=== PATIENT | male | born 1970 | race Caucasian/White ===

== ENCOUNTER → 2019-11-09 08:57 | Outpatient (BNVA) | payer BC, OTHER, SELFPAY | PROVIDERS: PCP Nurse Practitioner; Visit Provider Nurse Practitioner | DX: J02.9 Acute pharyngitis, unspecified (principal); I10 Essential (primary) hypertension | CPT/HCPCS: 87081; 87880 ==

== ENCOUNTER 2021-04-22 11:40 | Emergency (ER) | payer OTHER, SELFPAY ==
[2021-04-22] VITALS (9 sets, daily range): BP systolic 113–145; BP diastolic 67–81; PULSE 80–97; RESP 17–20; TEMP 37.6–39.1; O2SAT 92–97; BMI 33.2
--- NOTE | 2021-04-22 13:08 | XRR_ITS ---
PROCEDURE INFORMATION: Exam: XR Chest Exam date and time: 04/22/2021 1:08 PM Age: 50 years old Clinical indication: Shortness of breath; Additional info: SOB covid TECHNIQUE: Imaging protocol: XR of the chest. Views: 1 view. COMPARISON: No relevant prior studies available. FINDINGS: Lungs: Patulous infiltrate seen within both lungs, more pronounced on the left. Pleural spaces: Unremarkable. No pleural effusion. No pneumothorax. Heart/Mediastinum: Unremarkable. No cardiomegaly. Bones/joints: Unremarkable. XR/XR chest 1V portable [id number] IMPRESSION: Patulous infiltrates within the lungs. Please see corresponding CTA chest report which describes in further detail findings of suspected COVID-19 pneumonia.
--- NOTE | 2021-04-22 13:08 | W.ED.COVID ---
HPI - COVID General: Chief Complaint: COVID symptoms Stated Complaint: COVID+ SOB Time Seen by Provider: 04/22/21 11:45 Triage information: No fever, cough or shortness of breath. Exposure to COVID + person last 14 days History of Present Illness: HPI Narrative: Pt presents to ER c/o cough congestion and SOB and states exposure to Covid 14 days ago. Pt denies fever, or chest pain, Pt states he just feels tired. COVID 19 common symptoms: negative fever(s), chills, productive cough, dyspnea, headache(s), throat pain, nasal congestion, nausea, vomiting or diarrhea COVID 19 other sytmptoms: negative chest pain or confusion COVID Results: No Data to Display Review of Systems Const: Denies: fever(s), chills, change in appetite, change in weight, malaise or diaphoresis Eyes: Denies: change in vision, blurry vision, blind spots, photophobia, eye discomfort, eye discharge, eye redness, floaters or seeing flashes ENMT: Denies: throat pain, uvular edema, enlarged tonsils, odynophagia, hoarseness, mouth pain, swelling of lips/tongue, oral sores, bleeding gums, dental pain, dry mouth, ear or mastoid pain, ear discharge, change in hearing, tinnitus, disequilibrium, nasal discharge, nasal congestion, post nasal drip or sinus pain Card: Denies: chest pain, palpitations, irregular heart rhythm, edema, swelling of feet/ankles, lightheadedness, syncope, pre-syncope, dyspnea on exertion, orthopnea, leg pain with exertion or acrocyanosis Resp: Denies: dyspnea, productive cough, wheezing, stridor, pain on inspiration, change in phlegm color, hemoptysis or chest congestion GI: Denies: abdominal pain, nausea, vomiting, hematemesis, dysphagia, diarrhea, constipation, GI cramping, change in bowel habits or rectal pain : Denies: flank pain, dysuria, urinary frequency, urinary urgency, urinary hesitancy or hematuria Musc: Denies: neck pain, back pain, extremity pain, extremity swelling, joint pain, joint swelling, joint redness, joint warmth or deformity Skin/Breast: Denies: rash, pruritus, erythema, sores, new lesions, changes in skin color or dry skin Neuro: Denies: headache(s), numbness in extremities, weakness in extremities, sensory changes, lack of coordination, difficulty walking, frequent falls, dizziness, vertigo, confusion, behavioral changes, Slurred speech present, difficulty communicating thoughts or seizure-like activity Psych: Denies: anxiety, depression, suicidal ideation or homicidal ideation Endo: Denies: polyuria, polydipsia, tired all the time, cold intolerance, excessive sweating, flushing, hot flashes or heat intolerance Jerome/Lymph: Denies: easy bruising, easy bleeding, petechiae, purpura, enlarged lymph nodes or tender lymph nodes All/Imm: Denies: urticaria, throat swelling, tongue swelling, facial swelling, acute wheezing or itchy eyes PFSH ED PFSH: Medical History Acute and chronic respiratory failure with hypoxia Essential (primary) hypertension Pneumonia due to COVID-19 virus Pulmonary emboli Surgical History History of arthroscopic knee surgery left knee - dr andersen Hx of tonsillectomy Family History Family/Other Seizure disorder Uncle Other Hypertension Social History Quit status (tobacco): has quit using tobacco Year quit tobacco: 1990 Former quit date comment: Hx of 1PPD x 6 Years - Quit Chewing Tobacco 2020 - Hox of 30 Years Second hand smoke exposure: No Smoking risk assessment/counseling performed?: No Alcohol intake: former Counseling given: No Counseling given: No Lives independently: Yes Household members: spouse Marital status: Current occupational status: employed Current occupation: [employer] History of recent travel: No Current gender identity: Male Physical Exam Const: COMMON NORMALS: no acute distress, patient oriented x3, healthy appearing, alert and well nourished GENERAL APPEARANCE: cooperative, comfortable, well kempt and well developed; not ill appearing ORIENTATION/CONSCIOUSNESS: Yes awake, Yes oriented to person, Yes oriented to place and Yes oriented to time HENMT: COMMON NORMALS: normocephalic, atraumatic, hearing grossly normal bilaterally, external ears normal, EAC's normal, TM's normal bilaterally, Normal external nose present, Normal nasal mucous membranes and turbinates present and moist oral mucous membranes HEAD & SCALP: normal to inspection, normocephalic and atraumatic FACE & SINUS: normal facial exam, sinuses nontender and face symmetric NOSE: Normal external nose present, Normal nares present, Normal nasal mucous membranes and turbinates present, No nasal discharge present and Abnormal external nose present EXTERNAL EAR: Yes external ears normal and Yes mastoids normal EXTERNAL AUDITORY CANAL: EAC's normal TYMPANIC MEMBRANE: TM's normal bilaterally MOUTH: Normal oral and palatal mucosa present, lip normal, tongue normal and Normal salivary glands and ducts present THROAT: no uvular edema Eye: COMMON NORMALS: Equal, round and reactive pupils present, EOMs intact bilaterally, conjunctivae normal, no scleral icterus and no papilledema GENERAL EYE: appearance normal, both eyes and all related structures EYELID: eyelids normal CONJUNCTIVA: Yes conjunctivae normal SCLERA: sclerae normal CORNEA: Yes corneas normal PUPIL: Yes Equal, round and reactive pupils present DIRECT OPHTHALMOSCOPY: Yes no papilledema Neck/C-Spine: COMMON NORMALS: full ROM, no lymphadenopathy, supple, no meningeal signs, no JVD and Thyroid normal GENERAL: Yes normal visual inspection and Yes trachea midline THYROID: Thyroid normal CERVICAL SPINE: Yes cervical ROM normal Lymph: LYMPHATIC: no lymphadenopathy noted and no lymphedema noted Chest: COMMONS NORMALS: normal inspection of the chest and normal palpation of entire chest wall Resp: COMMON NORMALS: normal respiratory effort, No retractions, No use of accessory muscles and clear to auscultation bilaterally EFFORT & INSPECTION: Yes able to speak in complete sentences and Yes symmetric chest movement AUSCULTATION: clear to auscultation bilaterally Cardio: COMMON NORMALS: no JVD, regular rate and regular rhythm RATE: regular rate RHYTHM: regular rhythm GI: COMMON NORMALS: Normal to inspection, nondistended, normoactive bowel sounds present, Soft to palpation, non-tender, No hepatosplenomegaly present, no masses and no bruits INSPECTION: Yes normal to inspection AUSCULTATION: Yes normoactive bowel sounds PALPATION: Yes Soft to palpation and Yes No hepatosplenomegaly present PERCUSSION: normal to percussion RECTAL EXAM: Yes deferred : COMMON NORMALS: Yes no CVA tenderness BLADDER/KIDNEY EXAM: Yes no CVA tenderness Back/Pelvis: COMMON NORMALS: no CVA tenderness, thoracic and lumbar spine normal to inspection, no thoracic nor lumbar tenderness, thoraco-lumbar ROM normal and straight leg raise negative bilaterally THORACIC SPINE/UPPER BACK: Yes normal to inspection LUMBAR SPINE/LOWER BACK: Yes normal to inspection Extremity: COMMON NORMALS: normal to inspection, full ROM and capillary refill normal GENERAL: Yes normal exam except as noted Neuro: COMMON NORMALS: patient oriented x3, CN's II-XII intact bilaterally, moves all extremities, no focal motor deficits, no sensory deficits noted, deep tendon reflexes 2+ bilaterally and gait normal SENSORIUM/ORIENTATION: Yes alert, Yes oriented to person, Yes oriented to place and Yes oriented to time MENINGEAL SIGNS: Yes no meningeal signs CRANIAL NERVES: Yes CN normal except as noted SPEECH: speech normal GAIT: Yes Normal gait present SENSORY EXAM: Yes extremities MOTOR EXAM: 5/5 motor strength present throughout Psych: COMMON NORMALS: mental status grossly normal, Normal thought process present, cooperative, normal affect, speech normal, activity/motor behavior normal, denies hallucinations, denies homicidal ideation and denies suicidal ideation APPEARANCE: Yes grossly normal and Yes well kempt ATTITUDE: Yes calm ACTIVITY/MOTOR BEHAVIOR: Yes appropriate eye contact SPEECH: Yes normal speech THOUGHT PROCESS: Normal thought process present THOUGHT CONTENT: Yes Normal thought content present ATTENTION/CONCENTRATION: Yes attention grossly intact MEMORY/COGNITION: Yes memory grossly intact INSIGHT: Good insight present (Psych) JUDGEMENT: Good judgement present (Psych) Skin: COMMON NORMALS: no rashes or lesions noted, no wounds, turgor normal, no jaundice, no petechiae and no mottling GENERAL SKIN EXAM: no rashes or lesions noted and turgor normal Course Vital Signs: Vital signs: Vital Signs Temperature 100.2 F H 04/22/21 18:16 Pulse Rate 85 04/22/21 18:16 Respiratory Rate 20 H 04/22/21 18:16 Blood Pressure 145/81 04/22/21 18:16 Pulse Oximetry 95 04/22/21 18:16 MDM - COVID MDM Narrative Medical decision making narrative: Pt is well appearin gnon toxic and in no acute distress. Pt is febrile while here in the ER and treated with Tylenol. Pt denies chest pain and is not tachy but given his increasing sob I will order d dimer. Dimer is elevated. CT chest [address] [id number] [address] Scan Report Signed Patient: Bennie Avalos Unit #: [id number] : 1970 Age/Sex: 50 / M ADM Date: 04/22/21 Loc: ER Room/Bed: Attending Dr: Ordering Provider/Ordering MD: Sheridan Scott NP Date of Service: 04/22/21 Procedure(s): CT angio chest PE protcl [id number] Accession Number(s): [id number] Report Number: [id number] PROCEDURE INFORMATION: Exam: CTA Chest With Contrast Exam date and time: 04/22/2021 1:31 PM Age: 50 years old Clinical indication: Shortness of breath; Additional info: SOB TECHNIQUE: Imaging protocol: Computed tomographic angiography of the chest with contrast. 3D rendering (Not supervised by radiologist): MIP and/or 3D reconstructed images were created by the technologist. Radiation optimization: All CT scans at this facility use at least one of these dose optimization techniques: automated exposure control; mA and/or kV adjustment per patient size (includes targeted exams where dose is matched to clinical indication); or iterative reconstruction. Contrast material: OMNIPAQUE 350; Contrast volume: 81 ml; Contrast route: INTRAVENOUS (IV);? COMPARISON: CR (CHEST, ) 04/22/2021 1:18 PM RADIATION DOSE METRICS: Total DLP (mGy-cm): 600.95 FINDINGS: Pulmonary arteries: Normal. No pulmonary emboli. Aorta: Unremarkable. No aortic aneurysm. No aortic dissection. Lungs: Peripheral ground-glass opacities throughout both lungs. Pleural spaces: Unremarkable. No pneumothorax. No pleural effusion. Heart: Unremarkable. No cardiomegaly. No pericardial effusion. Lymph nodes: Several mildly prominent mediastinal lymph nodes are noted, likely reactive. Partially calcified left hilar and mediastinal lymph nodes suggestive of prior granulomatous disease. Spleen: Punctate calcifications noted throughout the spleen suggestive of prior granulomatous disease. Bones/joints: Unremarkable. No acute fracture. Soft tissues: Unremarkable. CT/CT angio chest PE protcl [id number] IMPRESSION: 1. Negative for pulmonary embolism. 2. Peripheral ground-glass opacities throughout both lungs suspicious for atypical infection, in particular COVID-19 pneumonia. Pt has no evidence of hypoxemia and is 95% on RA but does drop down to upper 80s with activity. Pt does meet qualifications for Home o2 and will plan to dc with O2. there is no tachypenia noted. Pt mildly hyponatremic 1 liter ns given Will send patient home with Pulse ox and have covid follow up Strict return precautions advsed Lab Data Result diagrams: 04/22/21 12:41 04/22/21 12:41 Labs: Lab Results 04/22/21 04/22/21 04/22/21 12:41 12:41 12:41 WBC 5.9 10^3/uL 10^3/uL (4.0-10.0) RBC 4.70 10^6/uL 10^6/uL (4.1-5.3) Hgb 13.0 g/dL g/dL (11.7-16.6) Hct 39.0 % L % (42.0-52.0) MCV 83.0 fL fL (80-94) MCH 27.7 pg L pg (28.0-34.0) MCHC 33.3 g/dL g/dL (30.0-36.0) RDW 13.7 % % (12.1-15.1) Plt Count 154 10^3/cmm 10^3/cmm (130-400) MPV 9.5 fL fL (7.4-10.4) Neut % (Auto) 85.4 % % Lymph % (Auto) 10.8 % % [place] % (Auto) 2.4 % % Eos % (Auto) 0.2 % % Baso % (Auto) 0.2 % % Neut # (Auto) 5.06 10^3/uL 10^3/uL (1.8-7.7) Lymph # (Auto) 0.6 10^3/uL L 10^3/uL (0.8-4.8) [place] # (Auto) 0.1 10^3/uL L 10^3/uL (0.2-0.9) Eos # (Auto) 0.0 10^3/uL 10^3/uL (0.0-0.8) Baso # (Auto) 0.0 10^3/uL 10^3/uL (0.0-0.1) Nucleated RBC % (auto) 0 % % Nucleated RBCs # 0.0 /100WBC /100WBC D-Dimer 1.13 ug/mIFEU H ug/mIFEU (0-0.59) Sodium 132 mmol/L L mmol/L (136-145) Potassium 3.5 mmol/L mmol/L (3.5-5.1) Chloride 98 mmol/L mmol/L (98-107) Carbon Dioxide 23 mmol/L mmol/L (22-29) Anion Gap 14.5 (5-19) BUN 9 mg/dL mg/dL (6-20) Creatinine 0.8 mg/dL mg/dL (0.7-1.2) GFR Calculation 102.7 mL/min mL/min (90-130) Glucose 127 mg/dL H mg/dL (65-115) Calculated Osmolality 274 mOsm/kg L mOsm/kg (285-295) Lactate Calcium 7.7 mg/dL L mg/dL (8.5-10.5) Total Bilirubin 0.5 mg/dL mg/dL (0.15-1.2) AST 55 U/L H U/L (0-40) ALT 49 U/L H U/L (0-41) Alkaline Phosphatase 74 IU/L IU/L (40-130) Total Protein 5.8 g/dL L g/dL (6.6-8.7) Albumin 3.2 g/dL L g/dL (3.5-5.2) Globulin 2.6 g/dL g/dL (1.3-4.6) 04/22/21 12:41 WBC RBC Hgb Hct MCV MCH MCHC RDW Plt Count MPV Neut % (Auto) Lymph % (Auto) [place] % (Auto) Eos % (Auto) Baso % (Auto) Neut # (Auto) Lymph # (Auto) [place] # (Auto) Eos # (Auto) Baso # (Auto) Nucleated RBC % (auto) Nucleated RBCs # D-Dimer Sodium Potassium Chloride Carbon Dioxide Anion Gap BUN Creatinine GFR Calculation Glucose Calculated Osmolality Lactate 1.6 mmol/L mmol/L (0.5-2.2) Calcium Total Bilirubin AST ALT Alkaline Phosphatase Total Protein Albumin Globulin COVID Results: No Data to Display Discharge Plan Discharge Patient Disposition: Home Clinical Impression: COVID-19 Condition: Stable Prescriptions: No Action loratadine 10 mg tablet 10 mg PO DAILY 0RF lisinopril 10 mg tablet 10 mg PO QAM Qty: 90 0RF Eliquis 5 mg tablet 5 mg PO BID 10 Days Qty: 20 0RF Tylenol Extra Strength 500 mg Tablet 1,000 mg PO PRN 0RF fluticasone propionate 50 mcg/actuation [place],Suspension 2 spray INTRANASAL DAILY 0RF Discharge Orders: Discharge ED (Routine); Ordered 04/22/21 Ordered By: Sheridan Scott Other Ambulatory Orders: DME: Oxygen (Order) Timeframe: 1 Month Facility: [facility] - Location: Emergency Room Ordered By: Sheridan Scott Referrals: Prince Cuevas, [facility] [Primary Care Provider] - Discharge Diet: Advance as tolerated Discharge Activity: Increase activity as tolerated Patient Instructions: Opioid Safety Activity Restrictions/Additional Instructions: Please follow up with PCP for recheck Please take meds as directed Please use Oxygen as needed Please check pulse ox frequently Please return to ER with worsening Shortness of breath, chest pain or any other concerning symptoms Coding Level of Care Code ED [employer] [facility] Att[facility] for Levi Reynolds Exam Comprehensive
[2021-04-22 13:22] LABS: Basophils % 0.2 %; Eosinophils % 0.2 %; Lymphocytes # 0.6 10^3/uL (0.8-4.8); Lymphocytes % 10.8 %; Mean Corpuscular HGB Conc 33.3 g/dL (30.0-36.0); Mean Corpuscular Hemoglobin 27.7 pg (28.0-34.0); Mean Platelet Volume 9.5 fL (7.4-10.4); Monocytes # 0.1 10^3/uL (0.2-0.9); Monocytes % 2.4 %; Neutrophils # 5.06 10^3/uL (1.8-7.7); Neutrophils % 85.4 %; Nucleated Red Blood Cells % 0 %; Platelet Count 154 10^3/cmm (130-400); Red Cell Distribution Width 13.7 % (12.1-15.1); White Blood Count 5.9 10^3/uL (4.0-10.0)
[2021-04-22 13:31] LABS: D Dimer 1.13 ug/mIFEU (0-0.59)
--- NOTE | 2021-04-22 13:31 | CTR_ITS ---
PROCEDURE INFORMATION: Exam: CTA Chest With Contrast Exam date and time: 04/22/2021 1:31 PM Age: 50 years old Clinical indication: Shortness of breath; Additional info: SOB TECHNIQUE: Imaging protocol: Computed tomographic angiography of the chest with contrast. 3D rendering (Not supervised by radiologist): MIP and/or 3D reconstructed images were created by the technologist. Radiation optimization: All CT scans at this facility use at least one of these dose optimization techniques: automated exposure control; mA and/or kV adjustment per patient size (includes targeted exams where dose is matched to clinical indication); or iterative reconstruction. Contrast material: OMNIPAQUE 350; Contrast volume: 81 ml; Contrast route: INTRAVENOUS (IV); COMPARISON: CR (CHEST, ) 04/22/2021 1:18 PM RADIATION DOSE METRICS: Total DLP (mGy-cm): 600.95 FINDINGS: Pulmonary arteries: Normal. No pulmonary emboli. Aorta: Unremarkable. No aortic aneurysm. No aortic dissection. Lungs: Peripheral ground-glass opacities throughout both lungs. Pleural spaces: Unremarkable. No pneumothorax. No pleural effusion. Heart: Unremarkable. No cardiomegaly. No pericardial effusion. Lymph nodes: Several mildly prominent mediastinal lymph nodes are noted, likely reactive. Partially calcified left hilar and mediastinal lymph nodes suggestive of prior granulomatous disease. Spleen: Punctate calcifications noted throughout the spleen suggestive of prior granulomatous disease. Bones/joints: Unremarkable. No acute fracture. Soft tissues: Unremarkable. CT/CT angio chest PE protcl [id number] IMPRESSION: 1. Negative for pulmonary embolism. 2. Peripheral ground-glass opacities throughout both lungs suspicious for atypical infection, in particular COVID-19 pneumonia. Radiation Dose CTDIVOL = (mGy): DLP = 600.95 (mGy-cm)
[2021-04-22] MEDS: sodium chloride 0.9% 1,000 ML 999 ML IV (13:46)
[2021-04-22 13:48] LABS: Lactate (Lactic Acid level) 1.6 mmol/L (0.5-2.2)
[2021-04-22 13:51] LABS: Alanine Aminotransferase 49 U/L (0-41); Albumin Level 3.2 g/dL (3.5-5.2); Alkaline Phosphatase 74 IU/L (40-130); Anion Gap 14.5 (5-19); Aspartate Amino Transferase 55 U/L (0-40); Blood Urea Nitrogen 9 mg/dL (6-20); Calcium 7.7 mg/dL (8.5-10.5); Carbon Dioxide 23 mmol/L (22-29); Chloride 98 mmol/L (98-107); Creatinine Clr Calc Pharmacy 143.7863; Globulin 2.6 g/dL (1.3-4.6); Glomerular Filtration Rate 102.7 mL/min (90-130); Glucose 127 mg/dL (65-115); Osmolality Calculated 274 mOsm/kg (285-295); Potassium 3.5 mmol/L (3.5-5.1); Sodium 132 mmol/L (136-145); Total Bilirubin 0.5 mg/dL (0.15-1.2); Total Protein 5.8 g/dL (6.6-8.7)
[2021-04-22 13:55] LABS: Slide Review Slide Review Perform
[2021-04-22] MEDS: iohexol 350 mg/mL 100 mL Btl IV (14:13)
[2021-04-22] MEDS: acetaminophen 500 mg Tablet 1000 MG PO (17:32)
--- NOTE | 2021-04-22 17:32 | PC.NURSE ---
oxygen company has delivered O2 and patient was about to discharge. discharge vitals 102.3 temp, chills. requests snack to settle stomach and tylenol for fever. MD notified. Tylenol given, patient eating now and will discharge shortly
== END 2021-04-22 18:10 | disposition home or self-care (01) ==
PROVIDERS: Emergency Provider Registered Nurse; PCP Nurse Practitioner
DX: U07.1 COVID-19 (principal); Z79.01 Long term (current) use of anticoagulants; I10 Essential (primary) hypertension; Z87.891 Personal history of nicotine dependence; Z86.711 Personal history of pulmonary embolism
CPT/HCPCS: 36415; 71045; 71275; 80053; 83605; 85025; 85378; 87040; 96360; 99284; J7030; Q9967

== ENCOUNTER 2021-04-25 13:26 | Emergency (ER) | payer OTHER, SELFPAY ==
--- NOTE | 2021-04-25 14:05 | XR_ITS ---
WS: [id number] Portable AP upright chest, 04/25/2021 Clinical Data: dyspnea/cough Comparison: Portable chest, 04/22/2021. Findings: Bilateral patchy pulmonary opacities have not changed. The heart is normal. No nodules, mas ses or effusions are seen. XR/XR chest 1V portable [id number] Impression: No change in bilateral patchy pulmonary opacities consistent with pneumonia.
[2021-04-25 14:16] VITALS: BP 158/92; PULSE 83; RESP 18; TEMP 36.5; O2SAT 94; BMI 33.2
--- NOTE | 2021-04-25 16:51 | ED_ITS ---
HPI - COVID General: Chief Complaint: COVID symptoms Stated Complaint: COVID (+), O2 BELOW 90% Time Seen by Provider: 04/25/21 16:45 Triage information: Has fever, cough or shortness of breath . Exposure to COVID + person last 14 days History of Present Illness: HPI Narrative: 50-year-old male who tested positive for Covid 7 days ago. He is not meet qualifications for monoclonal antibody he returned 4 days ago and was started on oxygen his oxygen saturations he felt of been decreasing. He had a finger sat monitor and said it was dropping into the 80s on arrival here he is consistently in the mid 90s on 2 L by nasal cannula. complaint: known COVID positive Prior covid testing: yes, results known Prior testing date: 04/18/21 COVID 19 common symptoms: positive fever(s), chills, cough, non-productive cough, dyspnea, fatigue, body aches, headache(s), loss of sense of smell and/or taste, throat pain, nasal congestion, nausea and diarrhea COVID 19 other sytmptoms: positive requiring oxygen; negative chest pain Onset (ago): day(s) Severity: moderate Pertinent comorbid conditions: hypertension Treatment prior to arrival: steroids and oxygen COVID Results: No Data to Display Review of Systems Const: Reports: fever(s), chills, body aches and fatigue ENMT: Reports: throat pain and nasal congestion Card: Denies: chest pain, edema, dyspnea on exertion or orthopnea Resp: Reports: dyspnea and non-productive cough GI: Reports: nausea and diarrhea : Denies: flank pain, dysuria, urinary frequency or urinary urgency Skin/Breast: Denies: rash or pruritus Neuro: Reports: headache(s) PFSH ED PFSH: Medical History Essential (primary) hypertension Surgical History History of arthroscopic knee surgery left knee - dr andersen Hx of tonsillectomy Family History Family/Other Seizure disorder Uncle Other Hypertension Social History Smoking and tobacco status: former smoker Second hand smoke exposure: No Alcohol intake: former Household members: spouse Marital status: Current occupational status: employed Current occupation: [employer] History of recent travel: No Current gender identity: Male Physical Exam Const: COMMON NORMALS: no acute distress GENERAL APPEARANCE: cooperative and comfortable ORIENTATION/CONSCIOUSNESS: Yes awake, Yes oriented to person, Yes oriented to place and Yes oriented to time HENMT: COMMON NORMALS: normocephalic, atraumatic and hearing grossly normal bilaterally HEAD & SCALP: normocephalic and atraumatic Neck/C-Spine: COMMON NORMALS: no JVD Resp: COMMON NORMALS: normal respiratory effort, No retractions, No use of accessory muscles and clear to auscultation bilaterally AUSCULTATION: clear to auscultation bilaterally Cardio: COMMON NORMALS: no JVD, regular rate, regular rhythm and No murmurs present (Cardio) RATE: regular rate RHYTHM: regular rhythm GI: COMMON NORMALS: Soft to palpation and No hepatosplenomegaly present AUSCULTATION: Yes normoactive bowel sounds PALPATION: Yes Soft to palpation, No Tenderness to palpation present (GI), No Guarding due to palpation present (GI) and Yes No hepatosplenomegaly present Extremity: COMMON NORMALS: normal to inspection, capillary refill normal, no clubbing, cyanosis or edema, no calf tenderness and no pedal edema Neuro: SENSORIUM/ORIENTATION: Yes oriented to person, Yes oriented to place and Yes oriented to time Skin: COMMON NORMALS: no rashes or lesions noted GENERAL SKIN EXAM: no rashes or lesions noted Course Vital Signs: Vital signs: Vital Signs Temperature 98.3 F 04/25/21 18:17 Pulse Rate 73 04/25/21 18:17 Respiratory Rate 18 04/25/21 18:17 Blood Pressure 159/102 04/25/21 18:17 Pulse Oximetry 94 04/25/21 18:17 MDM - COVID MDM Narrative: Medical decision making narrative: Reviewed findings with the patient. Discharge home return as needed. Continue previously prescribed medications and oxygen. His sats are good on current oxygen supplementation. Lab Data: Labs: Lab Results 04/25/21 04/25/21 Range/Units 17:36 17:36 WBC 10.2 H (4.0-10.0) 10^3/ uL RBC 5.09 (4.1-5.3) 10^6/u L Hgb 14.1 (11.7-16.6) g/dL Hct 42.9 (42.0-52.0) % MCV 84.3 (80-94) fL MCH 27.7 L (28.0-34.0) pg MCHC 32.9 (30.0-36.0) g/dL RDW 13.6 (12.1-15.1) % Plt Count 275 (130-400) 10^3/c mm MPV 8.7 (7.4-10.4) fL Neut % (Auto) 80.6 % Lymph % (Auto) 8.2 % [place] % (Auto) 6.2 % Eos % (Auto) 0.0 % Baso % (Auto) 0.1 % Neut # (Auto) 8.21 H (1.8-7.7) 10^3/u L Lymph # (Auto) 0.8 (0.8-4.8) 10^3/u L [place] # (Auto) 0.6 (0.2-0.9) 10^3/u L Eos # (Auto) 0.0 (0.0-0.8) 10^3/u L Baso # (Auto) 0.0 (0.0-0.1) 10^3/u L Nucleated RBC % (a uto) 0 % Nucleated RBCs # 0.0 /100WBC Sodium 139 (136-145) mmol/L Potassium 4.3 (3.5-5.1) mmol/L Chloride 102 (98-107) mmol/L Carbon Dioxide 26 (22-29) mmol/L Anion Gap 15.3 (5-19) BUN 14 (6-20) mg/dL Creatinine 0.7 (0.7-1.2) mg/dL GFR Calculation 119.9 (90-130) mL/min Glucose 145 H (65-115) mg/dL Calculated Osmolal ity 291 (285-295) mOsm/k g Calcium 8.1 L (8.5-10.5) mg/dL Total Bilirubin 0.6 (0.15-1.2) mg/dL AST 172 H (0-40) U/L ALT 189 H (0-41) U/L Alkaline Phosphata se 98 (40-130) IU/L Total Protein 6.8 (6.6-8.7) g/dL Albumin 3.4 L (3.5-5.2) g/dL Globulin 3.4 (1.3-4.6) g/dL COVID Results: No Data to Display Discharge Plan Discharge Patient Disposition: Home Clinical Impression: COVID-19 Condition: Stable Prescriptions: No Action albuterol sulfate 2.5 mg /3 mL (0.083 %) solution for nebulization 2.5 mg inhalation Q4H PRN (Reason: Shortness Of Breath) RF: 0 Tylenol Extra Strength 500 mg Tablet 1,000 mg PO PRN RF: 0 albuterol sulfate 90 mcg/actuation HFA aerosol inhaler 1 - 2 puff INHALATION Q4H PRN (Reason: Shortness Of Breath) RF: 0 Flonase 50 mcg/actuation [place],Suspension 2 spray INTRANASAL DAILY RF: 0 amoxicillin-pot clavulanate 875-125 mg tablet 1 tab PO BID RF: 0 Vitamin C 1 tab PO QPM RF: 0 Vitamin D3 1 cap PO QPM RF: 0 zinc 1 cap PO QPM RF: 0 lisinopril 10 mg tablet 10 mg PO QAM RF: 0 dexamethasone [Decadron] 6 mg tablet 6 mg PO DAILY 7 Days Qty: 7 RF: 0 Discharge Orders: Discharge ED (Routine); Ordered 04/25/21 Ordered By: Ivan Flynn Referrals: Prince Cuevas FNP-C [Primary Care Provider] - Patient Instructions: Opioid Safety Activity Restrictions/Additional Instructions: Follow-up if symptoms are worsened. Coding Level of Care Code ED Bill Checker for Levi Fwd Exam Comprehensive
[2021-04-25 17:44] VITALS: BP 149/93; PULSE 66; RESP 18; O2SAT 96
[2021-04-25 17:51] LABS: Basophils % 0.1 %; Hematocrit 42.9 % (42.0-52.0); Hemoglobin 14.1 g/dL (11.7-16.6); Lymphocytes # 0.8 10^3/uL (0.8-4.8); Lymphocytes % 8.2 %; Mean Corpuscular HGB Conc 32.9 g/dL (30.0-36.0); Mean Corpuscular Hemoglobin 27.7 pg (28.0-34.0); Mean Corpuscular Volume 84.3 fL (80-94); Mean Platelet Volume 8.7 fL (7.4-10.4); Monocytes # 0.6 10^3/uL (0.2-0.9); Monocytes % 6.2 %; Neutrophils # 8.21 10^3/uL (1.8-7.7); Neutrophils % 80.6 %; Nucleated Red Blood Cells % 0 %; Platelet Count 275 10^3/cmm (130-400); Red Blood Count 5.09 10^6/uL (4.1-5.3); Red Cell Distribution Width 13.6 % (12.1-15.1); White Blood Count 10.2 10^3/uL (4.0-10.0)
[2021-04-25 18:12] LABS: Alanine Aminotransferase 189 U/L (0-41); Albumin Level 3.4 g/dL (3.5-5.2); Alkaline Phosphatase 98 IU/L (40-130); Anion Gap 15.3 (5-19); Aspartate Amino Transferase 172 U/L (0-40); Blood Urea Nitrogen 14 mg/dL (6-20); Calcium 8.1 mg/dL (8.5-10.5); Carbon Dioxide 26 mmol/L (22-29); Chloride 102 mmol/L (98-107); Globulin 3.4 g/dL (1.3-4.6); Glomerular Filtration Rate 119.9 mL/min (90-130); Glucose 145 mg/dL (65-115); Osmolality Calculated 291 mOsm/kg (285-295); Potassium 4.3 mmol/L (3.5-5.1); Sodium 139 mmol/L (136-145); Total Bilirubin 0.6 mg/dL (0.15-1.2); Total Protein 6.8 g/dL (6.6-8.7)
[2021-04-25 18:17] VITALS: BP 159/102; PULSE 73; RESP 18; TEMP 36.8; O2SAT 94
== END 2021-04-25 18:20 | disposition home or self-care (01) ==
PROVIDERS: Emergency Provider Family Medicine; PCP Nurse Practitioner
DX: U07.1 COVID-19 (principal); I10 Essential (primary) hypertension; Z87.891 Personal history of nicotine dependence
CPT/HCPCS: 71045; 80053; 85025; 99282

== ENCOUNTER 2021-04-26 08:59 | Inpatient (IN) | payer OTHER, SELFPAY ==
[2021-04-26] VITALS (46 sets, daily range): BP systolic 131–163; BP diastolic 87–96; PULSE 49–94; RESP 15–33; TEMP 36.9; O2SAT 84–96; BMI 33.2; BMI 35.2
--- NOTE | 2021-04-26 09:23 | XR_ITS ---
WS: [id number] Portable AP upright chest, 04/26/2021 Clinical Data: hypoxia Comparison: Portable chest, 04/25/2021. Findings: The bilateral patchy pulmonary opacities remain the same. The heart is normal. No nodules, masses or effusions are seen. There is a monitor lead on the right side of the chest. XR/XR chest 1V portable [id number] Impression: No change in bilateral patchy pulmonary opacities.
--- NOTE | 2021-04-26 09:24 | CT_ITS ---
WS: [id number] CTA OF THE CHEST WITH PULMONARY EMBOLISM PROTOCOL TECHNIQUE: High-resolution contrast enhanced CTA of the chest with coronal and sagittal reformatted i mages with pulmonary embolism protocol. MIP images are also reviewed. CLINICAL INFORMATION: Covid, hypoxia COMPARISON: April 22, 2021 DLP: 593.[address] scans at [facility] use at least one of these dose optimization techniques: automat ed exposure control; mA and/or kV adjustment per patient size (includes targeted exams where dose is matched to clinical indication); or iterative reconstruction. FINDINGS: Again seen are diffuse hazy groundglass infiltrates compatible with COVID19 pneumonia. This is progre ssed compared to previous with progressed infiltrates within the left perihilar region and left upper lobe. Progressed infiltrates within the left midlung. Lower lobe infiltrates are similar to previous . Slightly progressed infiltrates in the right midlung and right upper lobe. No focal consolidation o r pleural fluid. Proximal main pulmonary arteries are normal. Filling defects in the left upper lobe subsegmental pulmonary artery, right lower lobe subsegmental p ulmonary arteries, and right upper lobe segmental and subsegmental pulmonary artery consistent with p ulmonary embolus. Normal caliber thoracic aorta. No axillary lymphadenopathy. No mediastinal or hilar lymphadenopathy. Reactive mediastinal and subcarinal lymph nodes. Adrenal glands are normal. Small esophageal hiatal hernia. CT/CT angio chest PE protcl [id number] IMPRESSION: 1. Multiple filling defects in the distal segmental and subsegmental pulmonary arteries described above consistent with acute pulmonary embolus. 2. Diffuse bilateral hazy groundglass infiltrates consistent with COVID 19 pne umonia. This is progressed compared to previous April 22, 2021 Notified Ivan Flynn DO at 04/26/2021 10:56 AM.
[2021-04-26 09:43] LABS: Basophils # 0.1 10^3/uL (0.0-0.1); Basophils % 0.3 %; Hematocrit 44.5 % (42.0-52.0); Hemoglobin 14.6 g/dL (11.7-16.6); Lymphocytes # 0.9 10^3/uL (0.8-4.8); Lymphocytes % 5.8 %; Mean Corpuscular HGB Conc 32.8 g/dL (30.0-36.0); Mean Corpuscular Hemoglobin 27.7 pg (28.0-34.0); Mean Corpuscular Volume 84.3 fL (80-94); Mean Platelet Volume 8.9 fL (7.4-10.4); Monocytes # 0.8 10^3/uL (0.2-0.9); Neutrophils # 13.63 10^3/uL (1.8-7.7); Neutrophils % 84.7 %; Nucleated Red Blood Cells % 0 %; Platelet Count 245 10^3/cmm (130-400); Red Blood Count 5.28 10^6/uL (4.1-5.3); Red Cell Distribution Width 13.6 % (12.1-15.1); White Blood Count 16.1 10^3/uL (4.0-10.0)
[2021-04-26 09:45] LABS: ABG PCO2 35.5 mmHg (35-45); ABG PH Result 7.47 (7.35-7.45); Alveolar-Arterial Oxygen Gradi 7.3 mmHg (5-10); Arterial Blood Gas Hematocrit 45.8 % (42-52); Base Excess ABG 2.5 mmol/L (-2.0-2.0); Blood Gas Allen Test Pos; Blood Gas Sample Site Radial, right; Blood Gas Sample Type Arterial; Carboxyhemoglobin 0.9 %THgb (0.4-20.1); HCO3 ABG 25.9 mmol/L (22-26); HGB O2 Sat 86.5 % (95-100); Ionized Calcium Level - ABG 1.2 mmol/L (1.1-1.4); Methemoglobin 0.6 % (0.4-1.5); Oxygen Device NC; Oxygen Saturation ABG 87.9; PO2 ABG 50.4 mmHg (80.0-100.0)
[2021-04-26] MEDS: dexamethasone 10 mg/mL INJ IVP (09:54)
[2021-04-26 10:07] LABS: Lactic Sepsis W/Reflex 1.7 mmol/L (0.5-2.2)
[2021-04-26 10:08] LABS: Alanine Aminotransferase 194 U/L (0-41); Albumin Level 3.4 g/dL (3.5-5.2); Alkaline Phosphatase 123 IU/L (40-130); Anion Gap 13.1 (5-19); Aspartate Amino Transferase 131 U/L (0-40); Blood Urea Nitrogen 16 mg/dL (6-20); C Reactive Protein 9.8 mg/L (0.0-4.9); Calcium 8.2 mg/dL (8.5-10.5); Carbon Dioxide 28 mmol/L (22-29); Chloride 99 mmol/L (98-107); Creatinine Clr Calc Pharmacy 143.7863; Globulin 3.3 g/dL (1.3-4.6); Glomerular Filtration Rate 102.7 mL/min (90-130); Glucose 107 mg/dL (65-115); Osmolality Calculated 284 mOsm/kg (285-295); Potassium 4.1 mmol/L (3.5-5.1); Sodium 136 mmol/L (136-145); Total Bilirubin 0.7 mg/dL (0.15-1.2); Total Protein 6.7 g/dL (6.6-8.7)
[2021-04-26] MEDS: remdesivir 200 MG in sodium chloride 0.9% (100 ml) 100 ML 100 MG IV (10:12)
[2021-04-26 10:20] LABS: D Dimer >= 20.00 ug/mIFEU (0-0.59)
--- NOTE | 2021-04-26 10:21 | W.ED.COVID ---
HPI - COVID General: Chief Complaint: COVID symptoms Stated Complaint: COVID+ LOW O2 Time Seen by Provider: 04/26/21 09:06 Triage information: Has fever, cough or shortness of breath. No known COVID + exposure last 14 days History of Present Illness: HPI Narrative: 50-year-old male presents to the emergency room with hypoxia. We did seen him previously he was on supplemental O2 for his Covid and maintaining good O2 sats overnight he had increasing difficulty and returns as per instructions at the time of his last discharge. He denies any vomiting he has had some loose stool that is mostly resolved he had increasing shortness of breath however. MD complaint: known COVID positive Prior covid testing: yes, results known Prior testing date: 04/18/21 COVID 19 common symptoms: positive fever(s), chills, cough, non-productive cough, dyspnea, fatigue, body aches, headache(s), loss of sense of smell and/or taste, throat pain, nasal congestion, nausea and diarrhea; negative vomiting COVID 19 other sytmptoms: positive requiring oxygen; negative chest pain Onset (ago): day(s) (8) Treatment prior to arrival: steroids and oxygen COVID Results: No Data to Display Review of Systems Const: Reports: fever(s), chills, body aches and fatigue ENMT: Reports: throat pain and nasal congestion Card: Denies: chest pain, edema, dyspnea on exertion or orthopnea Resp: Reports: dyspnea and non-productive cough GI: Reports: nausea and diarrhea; Denies: vomiting : Denies: flank pain, dysuria, urinary frequency or urinary urgency Skin/Breast: Denies: rash or pruritus Neuro: Reports: headache(s) PFSH ED PFSH: Medical History Essential (primary) hypertension Surgical History History of arthroscopic knee surgery left knee - dr andersen Hx of tonsillectomy Family History Family/Other Seizure disorder Uncle Other Hypertension Social History Smoking and tobacco status: former smoker Second hand smoke exposure: No Alcohol intake: former Household members: spouse Marital status: Current occupational status: employed Current occupation: [employer] History of recent travel: No Current gender identity: Male Physical Exam Const: GENERAL APPEARANCE: cooperative ORIENTATION/CONSCIOUSNESS: Yes awake, Yes oriented to person, Yes oriented to place and Yes oriented to time HENMT: COMMON NORMALS: normocephalic, atraumatic and hearing grossly normal bilaterally HEAD & SCALP: normocephalic and atraumatic Neck/C-Spine: COMMON NORMALS: no JVD Resp: AUSCULTATION: rales, rhonchi and wheezes Cardio: COMMON NORMALS: no JVD, regular rate, regular rhythm and No murmurs present (Cardio) RATE: regular rate RHYTHM: regular rhythm GI: COMMON NORMALS: Soft to palpation and No hepatosplenomegaly present AUSCULTATION: Yes normoactive bowel sounds PALPATION: Yes Soft to palpation, No Tenderness to palpation present (GI), No Guarding due to palpation present (GI) and Yes No hepatosplenomegaly present Extremity: COMMON NORMALS: normal to inspection, capillary refill normal, no clubbing, cyanosis or edema, no calf tenderness and no pedal edema Neuro: SENSORIUM/ORIENTATION: Yes oriented to person, Yes oriented to place and Yes oriented to time Skin: COMMON NORMALS: no rashes or lesions noted GENERAL SKIN EXAM: no rashes or lesions noted Course Vital Signs: Vital signs: Vital Signs Temperature 97.7 F 04/30/21 11:18 Pulse Rate 65 04/30/21 15:30 Respiratory Rate 17 04/30/21 15:30 Blood Pressure 115/79 04/30/21 15:30 Pulse Oximetry 92 04/30/21 15:30 MDM - COVID MDM Narrative: Medical decision making narrative: Admitted for worsening Covid pneumonitis not requiring hospitalization due to failed outpatient therapy and worsening hypoxia. Discussed with hospitalist orders written Lab Data: Labs: Lab Results 04/26/21 04/26/21 04/26/21 Range/Units 09:29 09:29 09:29 WBC 16.1 H (4.0-10.0) 10^3/ uL RBC 5.28 (4.1-5.3) 10^6/u L Hgb 14.6 (11.7-16.6) g/dL Hct 44.5 (42.0-52.0) % MCV 84.3 (80-94) fL MCH 27.7 L (28.0-34.0) pg MCHC 32.8 (30.0-36.0) g/dL RDW 13.6 (12.1-15.1) % Plt Count 245 (130-400) 10^3/c mm MPV 8.9 (7.4-10.4) fL Neut % (Auto) 84.7 % Lymph % (Auto) 5.8 % [place] % (Auto) 5.0 % Eos % (Auto) 0.0 % Baso % (Auto) 0.3 % Neut # (Auto) 13.63 H (1.8-7.7) 10^3/u L Lymph # (Auto) 0.9 (0.8-4.8) 10^3/u L [place] # (Auto) 0.8 (0.2-0.9) 10^3/u L Eos # (Auto) 0.0 (0.0-0.8) 10^3/u L Baso # (Auto) 0.1 (0.0-0.1) 10^3/u L Nucleated RBC % (a uto) 0 % Nucleated RBCs # 0.0 /100WBC D-Dimer >= 20.00 H (0-0.59) ug/mIFE U Specimen Type Sample Site ABG pH (7.35-7.45) ABG pCO2 (35-45) mmHg ABG pO2 (80.0-100.0) mmH g ABG HCO3 (22-26) mmol/L ABG O2 Saturation ABG Base Excess (-2.0-2.0) mmol/ L Chase Test A-a O2 Gradient (5-10) mmHg Hematocrit (42-52) % Hgb O2 Saturation (95-100) % Carboxyhemoglobin (0.4-20.1) %THgb Methemoglobin (0.4-1.5) % Total Hemoglobin (14-18) g/dL Ionized Calcium (1.1-1.4) mmol/L O2 Delivery Device O2 Liters/Min % Systems Analyst Developer ID Sodium 136 (136-145) mmol/L Potassium 4.1 (3.5-5.1) mmol/L Chloride 99 (98-107) mmol/L Carbon Dioxide 28 (22-29) mmol/L Anion Gap 13.1 (5-19) BUN 16 (6-20) mg/dL Creatinine 0.8 (0.7-1.2) mg/dL GFR Calculation 102.7 (90-130) mL/min Glucose 107 (65-115) mg/dL Calculated Osmolal ity 284 L (285-295) mOsm/k g Lactic Acid (0.5-2.2) mmol/L Calcium 8.2 L (8.5-10.5) mg/dL Magnesium (1.7-2.3) mg/dL Total Bilirubin 0.7 (0.15-1.2) mg/dL AST 131 H (0-40) U/L ALT 194 H (0-41) U/L Alkaline Phosphata se 123 (40-130) IU/L Troponin T Gen 5 n g/L (0-15) ng/L C-Reactive Protein 9.8 H (0.0-4.9) mg/L NT-Pro-B Natriuret Pep (0-125) pg/mL Total Protein 6.7 (6.6-8.7) g/dL Albumin 3.4 L (3.5-5.2) g/dL Globulin 3.3 (1.3-4.6) g/dL 04/26/21 04/26/21 04/26/21 Range/Units 09:29 09:29 09:29 WBC (4.0-10.0) 10^3/ uL RBC (4.1-5.3) 10^6/u L Hgb (11.7-16.6) g/dL Hct (42.0-52.0) % MCV (80-94) fL MCH (28.0-34.0) pg MCHC (30.0-36.0) g/dL RDW (12.1-15.1) % Plt Count (130-400) 10^3/c mm MPV (7.4-10.4) fL Neut % (Auto) % Lymph % (Auto) % [place] % (Auto) % Eos % (Auto) % Baso % (Auto) % Neut # (Auto) (1.8-7.7) 10^3/u L Lymph # (Auto) (0.8-4.8) 10^3/u L [place] # (Auto) (0.2-0.9) 10^3/u L Eos # (Auto) (0.0-0.8) 10^3/u L Baso # (Auto) (0.0-0.1) 10^3/u L Nucleated RBC % (a uto) % Nucleated RBCs # /100WBC D-Dimer (0-0.59) ug/mIFE U Specimen Type Sample Site ABG pH (7.35-7.45) ABG pCO2 (35-45) mmHg ABG pO2 (80.0-100.0) mmH g ABG HCO3 (22-26) mmol/L ABG O2 Saturation ABG Base Excess (-2.0-2.0) mmol/ L Chase Test A-a O2 Gradient (5-10) mmHg Hematocrit (42-52) % Hgb O2 Saturation (95-100) % Carboxyhemoglobin (0.4-20.1) %THgb Methemoglobin (0.4-1.5) % Total Hemoglobin (14-18) g/dL Ionized Calcium (1.1-1.4) mmol/L O2 Delivery Device O2 Liters/Min % Systems Analyst Developer ID Sodium (136-145) mmol/L Potassium (3.5-5.1) mmol/L Chloride (98-107) mmol/L Carbon Dioxide (22-29) mmol/L Anion Gap (5-19) BUN (6-20) mg/dL Creatinine (0.7-1.2) mg/dL GFR Calculation (90-130) mL/min Glucose (65-115) mg/dL Calculated Osmolal ity (285-295) mOsm/k g Lactic Acid 1.7 (0.5-2.2) mmol/L Calcium (8.5-10.5) mg/dL Magnesium (1.7-2.3) mg/dL Total Bilirubin (0.15-1.2) mg/dL AST (0-40) U/L ALT (0-41) U/L Alkaline Phosphata se (40-130) IU/L Troponin T Gen 5 n g/L 9 (0-15) ng/L C-Reactive Protein (0.0-4.9) mg/L NT-Pro-B Natriuret Pep 153 H (0-125) pg/mL Total Protein (6.6-8.7) g/dL Albumin (3.5-5.2) g/dL Globulin (1.3-4.6) g/dL 04/26/21 04/26/21 Range/Units 09:29 09:30 WBC (4.0-10.0) 10^3/ uL RBC (4.1-5.3) 10^6/u L Hgb (11.7-16.6) g/dL Hct (42.0-52.0) % MCV (80-94) fL MCH (28.0-34.0) pg MCHC (30.0-36.0) g/dL RDW (12.1-15.1) % Plt Count (130-400) 10^3/c mm MPV (7.4-10.4) fL Neut % (Auto) % Lymph % (Auto) % [place] % (Auto) % Eos % (Auto) % Baso % (Auto) % Neut # (Auto) (1.8-7.7) 10^3/u L Lymph # (Auto) (0.8-4.8) 10^3/u L [place] # (Auto) (0.2-0.9) 10^3/u L Eos # (Auto) (0.0-0.8) 10^3/u L Baso # (Auto) (0.0-0.1) 10^3/u L Nucleated RBC % (a uto) % Nucleated RBCs # /100WBC D-Dimer (0-0.59) ug/mIFE U Specimen Type Arterial Sample Site Radial, right ABG pH 7.47 H (7.35-7.45) ABG pCO2 35.5 (35-45) mmHg ABG pO2 50.4 L (80.0-100.0) mmH g ABG HCO3 25.9 (22-26) mmol/L ABG O2 Saturation 87.9 ABG Base Excess 2.5 H (-2.0-2.0) mmol/ L Chase Test Pos A-a O2 Gradient 7.3 (5-10) mmHg Hematocrit 45.8 (42-52) % Hgb O2 Saturation 86.5 L (95-100) % Carboxyhemoglobin 0.9 (0.4-20.1) %THgb Methemoglobin 0.6 (0.4-1.5) % Total Hemoglobin 15.0 (14-18) g/dL Ionized Calcium 1.2 (1.1-1.4) mmol/L O2 Delivery Device Nc O2 Liters/Min 6.0 % Systems Analyst Developer ID [place] Sodium 137.0 (136-145) mmol/L Potassium 4.0 (3.5-5.1) mmol/L Chloride (98-107) mmol/L Carbon Dioxide (22-29) mmol/L Anion Gap (5-19) BUN (6-20) mg/dL Creatinine (0.7-1.2) mg/dL GFR Calculation (90-130) mL/min Glucose 107.0 (65-115) mg/dL Calculated Osmolal ity (285-295) mOsm/k g Lactic Acid (0.5-2.2) mmol/L Calcium (8.5-10.5) mg/dL Magnesium 2.3 (1.7-2.3) mg/dL Total Bilirubin (0.15-1.2) mg/dL AST (0-40) U/L ALT (0-41) U/L Alkaline Phosphata se (40-130) IU/L Troponin T Gen 5 n g/L (0-15) ng/L C-Reactive Protein (0.0-4.9) mg/L NT-Pro-B Natriuret Pep (0-125) pg/mL Total Protein (6.6-8.7) g/dL Albumin (3.5-5.2) g/dL Globulin (1.3-4.6) g/dL COVID Results: No Data to Display Discharge Plan Discharge Patient Disposition: Admitted As Inpatient Admit Provider: Valentín Wills Clinical Impression: Pneumonia due to COVID-19 virus, Pulmonary emboli Condition: Stable Discharge Diet: Regular Discharge Activity: Resume usual activity Coding Level of Care Code ED Acid Polymerization Operator for Levi Reynolds
[2021-04-26] MEDS: iohexol 350 mg/mL 100 mL Btl IV (10:40)
--- NOTE | 2021-04-26 11:56 | PM.HP ---
Providers/Chief Complaint Primary Care Provider: CARLOS Sheehan Chief Complaint: COVID+ LOW O2 History of Present Illness Bennie Avalos is a 50 year old male who presents to the hospital with significant shortness of breath. He was previously diagnosed with Covid approximately April 18. He was seen in the emergency department on the . He has been on oxygen at home secondary to Covid. He reports some chest discomfort when he tries to take a deep breath. He has had no hemoptysis, or leg discomfort. He has felt much worse in regards to his shortness of breath in the last 24 hours. He has received 1 dose of vaccine, on April 12. He has had some loose stools, but no vomiting. He has had fever, and persistent cough as expected. He has not been able to eat and drink as well secondary to his illness. Review of Systems General: Reports: 10 or more systems reviewed and unremarkable except in HPI and below Const: Reports: fever(s), chills, body aches and fatigue Eyes: Denies: change in vision ENMT: Denies: throat pain Card: Reports: chest pain Resp: Reports: dyspnea and non-productive cough GI: Denies: abdominal pain : Denies: flank pain Musc: Denies: neck pain Skin/Breast: Denies: rash Neuro: Denies: headache(s) Psych: Denies: anxiety or depression Endo: Denies: polyuria Jerome/Lymph: Denies: easy bruising All/Imm: Denies: urticaria Medications/Allergies Home Medications Medication Instructions Recorded Confirmed Last Taken Type dexamethasone [Decadron] 6 mg PO DAILY 7 Days #7 tab 04/22/21 04/26/21 04/26/21 08:00 Rx Vitamin C 1 tab PO QPM 04/26/21 04/26/21 04/25/21 History Vitamin D3 1 cap PO QPM 04/26/21 04/26/21 04/25/21 History acetaminophen [Tylenol Extra 1,000 mg PO PRN 04/26/21 04/26/21 Unknown History Strength] albuterol sulfate 1 - 2 puff INHALATION Q4H PRN 04/26/21 04/26/21 Unknown History albuterol sulfate 2.5 mg INHALATION Q4H PRN 04/26/21 04/26/21 Unknown History amoxicillin-pot clavulanate 1 tab PO BID 04/26/21 04/26/21 04/26/21 08:00 History fluticasone propionate [Flonase] 2 spray INTRANASAL DAILY 04/26/21 04/26/21 Unknown History lisinopril 10 mg PO QAM 04/26/21 04/26/21 04/26/21 08:00 History zinc 1 cap PO QPM 04/26/21 04/26/21 04/25/21 History Allergies Allergy/AdvReac Type Severity Reaction Status Date / Time No Known Allergies Allergy Verified 04/26/21 10:08 PFSH Acute PFSH: Medical History Essential (primary) hypertension Surgical History History of arthroscopic knee surgery left knee - dr andersen Hx of tonsillectomy Family History Family/Other Seizure disorder Uncle Other Hypertension Social History Smoking and tobacco status: former smoker Second hand smoke exposure: No Alcohol intake: former Household members: spouse Marital status: Current occupational status: employed Current occupation: [employer] History of recent travel: No Current gender identity: Male Vitals/I&O/Wt Last Vital Signs Temp 98.4 F 04/26/21 09:14 Pulse 83 04/26/21 10:17 Resp 25 H 04/26/21 10:17 BP 163/95 04/26/21 09:14 Pulse Ox 92 04/26/21 10:17 Weight last 48 hrs Weight 111.13 kg Physical Exam Narrative: EXAM NARRATIVE: General exam is a white male, in moderate respiratory distress on high flow oxygen. HEENT: Pupils equally round. Oropharynx clear. Neck is supple no lymphadenopathy or thyromegaly Cardiovascular regular rate and rhythm without murmur, no S3 or S4 Lungs coarse breath sounds bilaterally with a few crackles Abdomen is soft nontender with positive bowel sounds. No obvious organomegaly exam is deferred Extremities no cyanosis clubbing or edema, cap refill brisk Skin no rash Neuro no obvious focal deficits. Data : 04/26/21 09:29 04/26/21 09:29 Other data: D-dimer is greater than 20 ABG demonstrates a pH 7.47, PCO2 35, PO2 50 on 6 L Lactic acid 1.7, calcium 8.2 AST 131, ALT 194. Bilirubin normal as well as alk phos. Albumin 3.4. Chest x-ray demonstrates multilobar infiltrates traits consistent with Covid CTA demonstrates multiple filling defects distal segmental and subsegmental consistent with pulmonary emboli as well as hazy changes consistent with Covid pneumonia. A&P Assessment and plan (1) Pulmonary emboli: High flow oxygen, titrate down as tolerated heparin drip will be initiated This is likely playing a significant part in his hypoxia Check venous duplex bilateral lower extremities Check echocardiogram Check BNP, troponin, EKG Status: Acute (2) Pneumonia due to COVID-19 virus: Remdesivir, although benefit may be low Dexamethasone 6 mg IV every 24 hours Follow for improvement, inflammatory levels. At this point Tocilizumab will not be given. Incentive spirometry Combivent metered-dose inhaler as needed Zosyn empirically Check bacterial antigen panel, MRSA PCR Status: Acute (3) Acute and chronic respiratory failure with hypoxia: Secondary to pulmonary emboli, COVID-19 pneumonia Status: Acute (4) Essential (primary) hypertension: Hold lisinopril currently secondary to pulmonary emboli with risk of hypotension Status: Chronic Additional A&P Information Full code Heparin will suffice for DVT prophylaxis Protonix for GI prophylaxis Attestations Medical Necessity Statement*: Will require greater than 2 midnight stay secondary to pulmonary emboli, COVID-19 pneumonia requiring high flow oxygen. Critical Care Time: The high probability of a clinically significant, sudden or life threatening deterioration of the patient's [pulmonary, vascular] system(s) required my full and direct attention, intervention and personal management. The critical care time is as shown. 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
[2021-04-26] MEDS: heparin drip 25,000 UNIT/500 ML PREMIX 31 UNIT IV (11:58)
--- NOTE | 2021-04-26 13:39 | ECG_ITS ---
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 Measurements Intervals [place] Rate: 82 P: 36 AK: 156 QRS: -16 QRSD: 90 T: 1 QT: 365 QTc: 428 Interpretive Statements SINUS RHYTHM LOW QRS VOLTAGE IN PRECORDIAL LEADS [QRS DEFLECTION < 1.0 mV IN CHEST LEADS] No previous ECG available for comparison Electronically Signed On 04-26-2021 23:47:57 CDT by Javad Causey M.D. [id number]
--- NOTE | 2021-04-26 13:39 | USCV_ITS ---
Bennie Avalos Age: 50 Gender: M : 1970 Exam Date: 04/26/2021 16:29 Ordering Phys: Valentín Wills MD Technologist: [place] Dunn [place]am [place] [facility] [place]: sob, COVID BP: 138 / 88 HR: 71 Rhythm: Sinus Technical Quality: Adequate MEASUREMENTS (Male / Female) Normal Values 2D ECHO LV Diastolic Diameter PLAX 5.0 cm 4.2 - 5.9 / 3.9 - 5.3 cm LV Systolic Diameter PLAX 3.5 cm IVS Diastolic Thickness 1.1 cm 0.6 - 1.0 / 0.6 - 0.9 cm IVS Systolic Thickness 1.2 cm LVPW Diastolic Thickness 0.9 cm 0.6 - 1.0 / 0.6 - 0.9 cm LVPW Systolic Thickness 1.5 cm LVOT Diameter 2.2 cm LV Ejection Fraction 2D Teich 58.1 % LV Ejection Fraction MOD 2C 65.8 % LV Ejection Fraction 2C AL 71.8 % LA Diameter 3.0 cm LA Width 3.2 cm LA Height 4.4 cm RA Width 3.2 cm RA Height 3.3 cm Aorta at Sinotubular Diameter 0.0 cm M-MODE Aortic Annulus Diameter 3.3 cm LA Ao Ratio MM 0.9 DOPPLER AV Peak Velocity 119.0 cm/s LVOT Peak Velocity 102.0 cm/s AV Area Cont Eq vti 3.7 cm squared AV Area Cont Eq pk 3.2 cm squared MV Peak Velocity 83.0 cm/s MV Area PHT 3.1 cm squared Mitral E to A Ratio 1.0 MV E' Velocity 40.5 cm/s Mitral E to MV E' Ratio 7.1 Mitral E to LV E' Lateral Ratio 6.5 Mitral E to LV E' Septal Ratio 7.9 PV Peak Velocity 95.0 cm/s RV Acceleration Time 0.2 s RV Ejection Time 0.3 s RV AcT/ET 0.5 FINDINGS Left Ventricle Normal left ventricular cavity size. Normal left ventricular systolic function. No regional wall motion abnormalities. Left ventricular ejection fraction is estimated at 58 %. Grade I/IV diastolic dysfunction (abnormal relaxation filling pattern), normal to mildly elevated filling pressures. Right Ventricle The right ventricle is normal in size and function. RVSP could not be calculated due to incomplete tricuspid regurgitation velocity profile. Right Atrium The right atrium is normal in size. Left Atrium The left atrium is normal in size. Mitral Valve Mildly thickened mitral valve. No mitral valve stenosis. Trace mitral valve regurgitation. Aortic Valve Moderate aortic valve calcification. No aortic valve stenosis. Trace to mild aortic valve regurgitation. Tricuspid Valve Structurally normal tricuspid valve without significant stenosis or regurgitation. P Pulmonic Valve Structurally normal pulmonic valve without significant stenosis. There is no pulmonic regurgitation. Pericardium Normal pericardium without effusion. Aorta Normal ascending aorta dimension. CONCLUSIONS 1-Normal left ventricular cavity size. Normal left ventricular systolic function. No regional wall motion abnormalities. Left ventricular ejection fraction is estimated at 58 %. Grade I/IV diastolic dysfunction (abnormal relaxation filling pattern), normal to mildly elevated filling pressures. 2-Mildly thickened mitral valve. No mitral valve stenosis. Trace mitral valve regurgitation. 3-Moderate aortic valve calcification. No aortic valve stenosis. Trace to mild aortic valve regurgitation. 4-The right ventricle is normal in size and function. RVSP could not be calculated due to incomplete tricuspid regurgitation velocity profile. 5-Right atrial pressure is around 5 mm of mercury. 6-There are no prior echocardiogram studies to compare. Leonid Roblero MD (Electronically Signed) Final Date: 27 April 2021 18:47 S
[2021-04-26 14:18] LABS: Troponin T (5th) Once 9 ng/L (0-15)
[2021-04-26 14:25] LABS: NT Pro B Type Natriuretic Pept 153 pg/mL (0-125)
[2021-04-26 18:25] LABS: Partial Thromboplastin Time 49.5 SECONDS (23.9-36.7)
[2021-04-26] MEDS: heparin 5,000 unit/mL INJ 1 mL IV (18:35)
[2021-04-26 19:55] LABS: Magnesium 2.3 mg/dL (1.7-2.3)
[2021-04-26] MEDS: piperacillin-tazobactam 3.375 GM in sodium chloride 0.9% (plus) 100 ML IV (20:28)
[2021-04-27] VITALS (150 sets, daily range): BP systolic 118–159; BP diastolic 71–102; PULSE 44–99; RESP 14–33; TEMP 36.1–36.8; O2SAT 82–96; BMI 35.2
[2021-04-27 01:48] LABS: Basophils # 0.1 10^3/uL (0.0-0.1); Basophils % 0.3 %; Hemoglobin 13.1 g/dL (11.7-16.6); Lymphocytes # 1.4 10^3/uL (0.8-4.8); Lymphocytes % 9.1 %; Mean Corpuscular HGB Conc 33.6 g/dL (30.0-36.0); Mean Corpuscular Hemoglobin 28.1 pg (28.0-34.0); Mean Corpuscular Volume 83.5 fL (80-94); Mean Platelet Volume 9.4 fL (7.4-10.4); Monocytes # 0.7 10^3/uL (0.2-0.9); Monocytes % 4.6 %; Neutrophils # 12.25 10^3/uL (1.8-7.7); Neutrophils % 80.4 %; Nucleated Red Blood Cells % 0 %; Platelet Count 257 10^3/cmm (130-400); Red Blood Count 4.67 10^6/uL (4.1-5.3); Red Cell Distribution Width 13.4 % (12.1-15.1); White Blood Count 15.3 10^3/uL (4.0-10.0)
[2021-04-27 01:57] LABS: Alanine Aminotransferase 152 U/L (0-41); Albumin Level 2.8 g/dL (3.5-5.2); Alkaline Phosphatase 102 IU/L (40-130); Anion Gap 13.3 (5-19); Aspartate Amino Transferase 59 U/L (0-40); Blood Urea Nitrogen 19 mg/dL (6-20); C Reactive Protein 24.4 mg/L (0.0-4.9); Calcium 7.8 mg/dL (8.5-10.5); Carbon Dioxide 25 mmol/L (22-29); Chloride 103 mmol/L (98-107); Globulin 2.9 g/dL (1.3-4.6); Glomerular Filtration Rate 102.7 mL/min (90-130); Glucose 133 mg/dL (65-115); Osmolality Calculated 288 mOsm/kg (285-295); Potassium 4.3 mmol/L (3.5-5.1); Sodium 137 mmol/L (136-145); Total Bilirubin 0.6 mg/dL (0.15-1.2); Total Protein 5.7 g/dL (6.6-8.7)
[2021-04-27 01:59] LABS: Partial Thromboplastin Time 86.3 SECONDS (23.9-36.7)
[2021-04-27 02:05] LABS: Slide Review Slide Review Perform
[2021-04-27 02:08] LABS: D Dimer >= 20.00 ug/mIFEU (0-0.59)
[2021-04-27 02:45] LABS: Ferritin 2472 ng/mL (30-400)
[2021-04-27] MEDS: piperacillin-tazobactam 3.375 GM in sodium chloride 0.9% (plus) 100 ML IV ×3 (04:04→20:20)
[2021-04-27] MEDS: heparin drip 25,000 UNIT/500 ML PREMIX 29 UNIT IV (04:04)
[2021-04-27 07:21] LABS: Procalcitonin 0.07 ng/mL (0-0.5)
[2021-04-27] MEDS: dexamethasone 4 mg/mL INJ 6 MG IVP (07:37)
[2021-04-27] MEDS: pantoprazole DR 40 mg Tablet PO (08:08)
[2021-04-27 08:57] LABS: Partial Thromboplastin Time 45.6 SECONDS (23.9-36.7)
[2021-04-27] MEDS: heparin 5,000 unit/mL INJ 1 mL IV (09:59)
--- NOTE | 2021-04-27 10:44 | PM.PN ---
Subjective Subjective: Interval history: Bennie reports he still feels short of breath. Somewhat better than yesterday. Medications: Reviewed: Yes Vitals/I&O/Wt Last Vital Signs Temp 98.2 F 04/27/21 08:00 Pulse 64 04/27/21 10:24 Resp 24 H 04/27/21 10:24 BP 159/102 04/27/21 08:15 Pulse Ox 90 04/27/21 10:24 04/26/21 04/27/21 04/27/21 22:59 06:59 14:59 Intake Total 305.633 / 405.633 294.367 / 700.000 268.683 / 268.683 Output Total 0 / 0 300 / 300 Balance 305.633 / 405.633 294.367 / 700.000 -31.317 / -31.317 Weight last 48 hrs Weight 117.707 kg Weight 117.707 kg Weight 111.13 kg Physical Exam Narrative: EXAM NARRATIVE: General exam is a white male, in mild respiratory distress on high flow oxygen. Neck is supple no lymphadenopathy or thyromegaly Cardiovascular regular rate and rhythm without murmur, no S3 or S4 Lungs coarse breath sounds bilaterally with a few crackles Abdomen is soft nontender with positive bowel sounds. No obvious organomegaly Extremities no cyanosis clubbing or edema, cap refill brisk Data : 04/27/21 00:48 04/27/21 00:48 Micro: Microbiology 04/26/21 21:50 MRSA Culture - Final Nose 04/27/21 00:55 Bacterial Antigens - Final Urine,Voided A&P Assessment and plan (1) Pulmonary emboli: High flow oxygen, titrate down as tolerated. Currently he is on 55%, no improvement from yesterday Continue heparin drip This is likely playing a significant part in his hypoxia Venous duplex demonstrated superficial venous thrombosis, close to popliteal vein Await echocardiogram Troponin and BNP checked and not significantly elevated. Status: Acute (2) Pneumonia due to COVID-19 virus: Continue remdesivir and dexamethasone Secondary to no improvement Tocilizumab today Incentive spirometry Combivent metered-dose inhaler as needed Zosyn empirically Bacterial antigen panel, PCR negative Inflammatory markers every other day. Procalcitonin level was checked and not elevated. Status: Acute (3) Acute and chronic respiratory failure with hypoxia: Secondary to pulmonary emboli, COVID-19 pneumonia Status: Acute (4) Essential (primary) hypertension: Continue lisinopril Status: Chronic Additional A&P Information Full code Heparin will suffice for DVT prophylaxis Protonix for GI prophylaxis Attestations Medical Necessity Statement*: Needs continued hospital stay secondary to COVID-19 pneumonia and multiple bilateral pulmonary emboli Critical Care Time: The high probability of a clinically significant, sudden or life threatening deterioration of the patient's [pulmonary, vascular] system(s) required my full and direct attention, intervention and personal management. The critical care time is as shown. 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
[2021-04-27] MEDS: remdesivir 100 MG in sodium chloride 0.9% (100 ml) 100 ML IV (10:51)
[2021-04-27] MEDS: lisinopril 10 mg Tablet PO (11:37)
[2021-04-27 15:36] LABS: Partial Thromboplastin Time 56.9 SECONDS (23.9-36.7)
--- NOTE | 2021-04-27 18:15 | PC.NURSE ---
Shift Summary: Uneventful shift. Patient spent most of the day up to chair. Hi jim settings remains 35L at 55%. Patient recovery time after movement has improved compared to this morning. Nurse updated on treatment plan and patient condition today.
--- NOTE | 2021-04-27 19:11 | USCV_ITS ---
Bennie Avalos Age: 50 Gender: M : 1970 Exam Date: 04/27/2021 05:45 Ordering Phys: Valentín Wills MD Technologist: Tonie Melendez Exam Location: [facility] – [place], [place] Indication: H/O PE HISTORY: Pulmonary embolism. PROCEDURES: Venous duplex imaging was performed in bilateral lower extremities. The following venous structures were evaluated: common femoral vein, profunda vein, proximal portion of the greater saphenous vein, superficial femoral vein, and the popliteal vein. In addition, the posterior tibial and peroneal trunk were evaluated. Serial compression, augmentation maneuvers, and spectral Doppler flow evaluation were performed. FINDINGS: + DVT Seen in Left Medial and Lateral Gastrocnemius veins. Normal 2-D Doppler and augmentation and compressibility throughout the lower extremity venous structures. Additional imaging through the proximal calf veins also reveals no thrombus. CONCLUSIONS Below the knee gastrocnemius vein thrombus, close but not within the popliteal vein. No DVT. Dr. Rafaela Johnson DO (Electronically Signed) Final Date: 27 April 2021 08:52 S
[2021-04-27] MEDS: heparin drip 25,000 UNIT/500 ML PREMIX 31 UNIT IV (20:56)
[2021-04-27 21:16] LABS: Partial Thromboplastin Time 59.4 SECONDS (23.9-36.7)
[2021-04-28] VITALS (99 sets, daily range): BP systolic 115–163; BP diastolic 73–107; PULSE 45–92; RESP 14–27; TEMP 36.4–36.6; O2SAT 81–97
[2021-04-28] MEDS: piperacillin-tazobactam 3.375 GM in sodium chloride 0.9% (plus) 100 ML IV ×3 (03:48→20:19)
[2021-04-28 06:01] LABS: Hematocrit 39.4 % (42.0-52.0); Mean Corpuscular Hemoglobin 27.8 pg (28.0-34.0); Mean Corpuscular Volume 84.2 fL (80-94); Mean Platelet Volume 9.1 fL (7.4-10.4); Platelet Count 251 10^3/cmm (130-400); Red Blood Count 4.68 10^6/uL (4.1-5.3); Red Cell Distribution Width 13.6 % (12.1-15.1); White Blood Count 15.2 10^3/uL (4.0-10.0)
[2021-04-28 06:13] LABS: Alanine Aminotransferase 99 U/L (0-41); Albumin Level 2.7 g/dL (3.5-5.2); Alkaline Phosphatase 77 IU/L (40-130); Anion Gap 11.3 (5-19); Aspartate Amino Transferase 28 U/L (0-40); Blood Urea Nitrogen 20 mg/dL (6-20); Calcium 7.7 mg/dL (8.5-10.5); Carbon Dioxide 25 mmol/L (22-29); Chloride 103 mmol/L (98-107); Globulin 2.8 g/dL (1.3-4.6); Glomerular Filtration Rate 89.7 mL/min (90-130); Glucose 82 mg/dL (65-115); Osmolality Calculated 282 mOsm/kg (285-295); Potassium 4.3 mmol/L (3.5-5.1); Sodium 135 mmol/L (136-145); Total Bilirubin 0.5 mg/dL (0.15-1.2); Total Protein 5.5 g/dL (6.6-8.7)
[2021-04-28 06:16] LABS: Partial Thromboplastin Time 108.8 SECONDS (23.9-36.7)
--- NOTE | 2021-04-28 06:31 | PC.NURSE ---
Shift summary Patient is alert and oriented, doing well on heated high flow, may be able to decrease to a non heated high flow. Patients spirits are getting down, he is wanting to go home but he is still hopeful that he is doing better. Patient had good urine output last night and got some sleep in the night. Patient does not complain of any pain and vitals are all stable, patient has not had any fevers in the night.
[2021-04-28 06:33] LABS: Slide Review Slide Review Perform
[2021-04-28 06:35] LABS: Absolute Eosinophils 0.1 10^3/cmm (0.0-0.7); Absolute Segmented Neutrophil 11.7 10/cmm (1.6-7.1); Band Neutrophils Absolute 0.5 10^3/cmm (0.0-1.2); Eosinophils 1 %; Lymphocytes 12 %; Monocytes Absolute 0.2 10^3/cmm (0.1-0.6); Segmented Neutrophils 77 %; Total Cells Counted 100 (0-100)
[2021-04-28 06:36] LABS: Absolute Neutrophil 12.2 10^3/cmm (1.4-6.5); Anisocytosis Trace; Hypochromasia Trace; Lymphocytes Absolute 1.8 10^3/cmm (1.2-3.4); Platelet Estimate Normal (Normal)
[2021-04-28] MEDS: dexamethasone 4 mg/mL INJ 6 MG IVP (07:31)
[2021-04-28] MEDS: lisinopril 10 mg Tablet PO (09:56)
[2021-04-28] MEDS: pantoprazole DR 40 mg Tablet PO (09:56)
[2021-04-28] MEDS: remdesivir 100 MG in sodium chloride 0.9% (100 ml) 100 ML IV (09:56)
[2021-04-28 11:54] LABS: Partial Thromboplastin Time 47.9 SECONDS (23.9-36.7)
[2021-04-28] MEDS: heparin 5,000 unit/mL INJ 1 mL IV (13:38)
--- NOTE | 2021-04-28 17:35 | PM.PN ---
Subjective Subjective: Interval history: continue high-flow nasal cannula. Medications: Reviewed: Yes Vitals/I&O/Wt Last Vital Signs Temp 97.6 F 04/28/21 13:15 Pulse 80 04/28/21 15:30 Resp 16 04/28/21 15:30 BP 117/84 04/28/21 15:30 Pulse Ox 94 04/28/21 15:30 04/28/21 04/28/21 04/28/21 06:59 14:59 22:59 Intake Total 100 / 1600.000 800 / 800 Output Total 250 / 1650 1100 / 1100 1300 / 2400 Balance -150 / -50.000 -300 / -300 -1300 / -1600 Weight last 48 hrs Weight 115.666 kg Weight 117.707 kg Weight 117.707 kg Physical Exam Narrative: EXAM NARRATIVE: General exam is a white male,no respiratory distress on high flow oxygen. Neck is supple no lymphadenopathy or thyromegaly Cardiovascular regular rate and rhythm without murmur, no S3 or S4 Lungs coarse breath sounds bilaterally with a few crackles Abdomen is soft nontender with positive bowel sounds. No obvious organomegaly Extremities no cyanosis clubbing or edema, cap refill brisk Data : 04/28/21 05:36 04/28/21 05:36 A&P Assessment and plan (1) Pulmonary emboli: High flow oxygen, titrate down as tolerated. Currently he is on 55%, no improvement from yesterday Continue heparin drip This is likely playing a significant part in his hypoxia Venous duplex demonstrated superficial venous thrombosis, close to popliteal vein Await echocardiogram Troponin and BNP checked and not significantly elevated. Status: Acute (2) Pneumonia due to COVID-19 virus: Continue remdesivir and dexamethasone Secondary to no improvement Tocilizumab today Incentive spirometry Combivent metered-dose inhaler as needed Zosyn empirically Bacterial antigen panel, PCR negative Inflammatory markers every other day. Procalcitonin level was checked and not elevated. Status: Acute (3) Acute and chronic respiratory failure with hypoxia: Secondary to pulmonary emboli, COVID-19 pneumonia Status: Acute (4) Essential (primary) hypertension: Continue lisinopril Status: Chronic Additional A&P Information Full code Heparin will suffice for DVT prophylaxis Protonix for GI prophylaxis Attestations Medical Necessity Statement*: Continue hospitalizationManagement of COVID-19 pneumonia Time Spent in Patient Care: Greater than 35 minutes (>than 50% of time spent in counselling and/or direct pt care on unit). 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
[2021-04-28 18:12] LABS: Partial Thromboplastin Time 60.5 SECONDS (23.9-36.7)
[2021-04-28] MEDS: heparin drip 25,000 UNIT/500 ML PREMIX 27 UNIT IV (18:41)
--- NOTE | 2021-04-28 19:19 | PC.NURSE ---
Shift Summary: Uneventful shift. Patient is regularly doing IS and flutter valve exercises as well as walking in place. Does not require any encouragement. Oxygen requirements have reduced thorughout the shift. currently on 6 liters NC.
[2021-04-29] VITALS (54 sets, daily range): BP systolic 115–164; BP diastolic 72–96; PULSE 49–103; RESP 15–26; TEMP 36.6–37.1; O2SAT 70–96
[2021-04-29] MEDS: piperacillin-tazobactam 3.375 GM in sodium chloride 0.9% (plus) 100 ML IV ×3 (04:29→20:33)
[2021-04-29 05:36] LABS: Partial Thromboplastin Time 80.6 SECONDS (23.9-36.7)
--- NOTE | 2021-04-29 05:56 | PC.NURSE ---
Shift summary Patient is alert and oriented, was up in the chair until 2200 then rested well the rest of the night, Patient is on a heparin drip that will be bridged to oral medication today. Patient is doing really well on 6L and is hoping to go home soon. patient is appropriate and cooperative, voids per urinal and has decent urine output. Patient has not complained of pain at all throughout the night and has rested well.
[2021-04-29 06:29] LABS: Partial Thromboplastin Time 80.6 SECONDS (23.9-36.7)
--- NOTE | 2021-04-29 07:54 | PC.NURSE ---
Report received, assessment completed Pt AAOx4, denies any pain or SOB. O2@6LNC in use. Lung sounds CTA, slightly diminished in L base. Assisted up to chair in room, standby assist only. Heparin gtt infusing per protocol at 25ml/h. Will monitor.
[2021-04-29] MEDS: lisinopril 10 mg Tablet PO (08:32)
[2021-04-29] MEDS: dexamethasone 4 mg/mL INJ 6 MG IVP (08:32)
[2021-04-29] MEDS: remdesivir 100 MG in sodium chloride 0.9% (100 ml) 100 ML IV (08:32)
[2021-04-29] MEDS: pantoprazole DR 40 mg Tablet PO (08:32)
--- NOTE | 2021-04-29 12:18 | PM.PN ---
Subjective Subjective: Interval history: overnight patient was weaned to 6 L of O2 via nasal cannula. No new clinical events Medications: Reviewed: Yes Vitals/I&O/Wt Last Vital Signs Temp 98.0 F 04/29/21 08:00 Pulse 74 04/29/21 10:00 Resp 21 H 04/29/21 10:00 BP 128/76 04/29/21 09:00 Pulse Ox 92 04/29/21 10:00 04/28/21 04/29/21 04/29/21 22:59 06:59 14:59 Intake Total 440 / 1240 100 / 1340 800 / 800 Output Total 2050 / 3150 300 / 3450 925 / 925 Balance -1610 / -1910 -200 / -2110 -125 / -125 Weight last 48 hrs Weight 115.938 kg Weight 115.666 kg Physical Exam Narrative: EXAM NARRATIVE: General exam is a white male,no respiratory distress on 6 L. Neck is supple no lymphadenopathy or thyromegaly Cardiovascular regular rate and rhythm without murmur, no S3 or S4 Lungs nonlabored respiration Abdomen nondistended Extremities no cyanosis clubbing or edema, Data : 04/28/21 05:36 04/28/21 05:36 A&P Assessment and plan (1) Pulmonary emboli: Currently he is on 55%, no improvement from yesterday Continue heparin drip - changed to Eliquis This is likely playing a significant part in his hypoxia Venous duplex demonstrated superficial venous thrombosis, close to popliteal vein Status: Acute (2) Pneumonia due to COVID-19 virus: Continue remdesivir and dexamethasone S/p Tocilizumab today Incentive spirometry Combivent metered-dose inhaler as needed Zosyn empirically -procalcitonin a.m. can likely deescalate Bacterial antigen panel, PCR negative Inflammatory markers every other day. Status: Acute (3) Acute and chronic respiratory failure with hypoxia: Secondary to pulmonary emboli, COVID-19 pneumonia Status: Acute (4) Essential (primary) hypertension: Continue lisinopril Status: Chronic Additional A&P Information Full code Heparin will suffice for DVT prophylaxis Protonix for GI prophylaxis Attestations Medical Necessity Statement*: continue hospitalization for management of COVID-19 pneumonia Time Spent in Patient Care: Greater than 35 minutes (>than 50% of time spent in counselling and/or direct pt care on unit). 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
[2021-04-29 12:50] LABS: Partial Thromboplastin Time 47.5 SECONDS (23.9-36.7)
[2021-04-29] MEDS: heparin drip 25,000 UNIT/500 ML PREMIX 27 UNIT IV (13:46)
[2021-04-29] MEDS: heparin 5,000 unit/mL INJ 1 mL IV (13:52)
[2021-04-29 20:33] LABS: Partial Thromboplastin Time 91.2 SECONDS (23.9-36.7)
[2021-04-30] VITALS (34 sets, daily range): BP systolic 115–135; BP diastolic 70–101; PULSE 51–99; RESP 12–32; TEMP 36.5; O2SAT 91–96
[2021-04-30 03:34] LABS: Basophils # 0.1 10^3/uL (0.0-0.1); Basophils % 0.3 %; Eosinophils # 0.4 10^3/uL (0.0-0.8); Hematocrit 39.2 % (42.0-52.0); Hemoglobin 13.1 g/dL (11.7-16.6); Lymphocytes # 1.7 10^3/uL (0.8-4.8); Lymphocytes % 9.4 %; Mean Corpuscular HGB Conc 33.4 g/dL (30.0-36.0); Mean Corpuscular Hemoglobin 27.9 pg (28.0-34.0); Mean Corpuscular Volume 83.4 fL (80-94); Mean Platelet Volume 8.9 fL (7.4-10.4); Monocytes # 0.6 10^3/uL (0.2-0.9); Monocytes % 3.5 %; Neutrophils # 13.48 10^3/uL (1.8-7.7); Neutrophils % 76.4 %; Nucleated Red Blood Cells % 0 %; Platelet Count 284 10^3/cmm (130-400); Positive C 1; Positive M 1; Red Cell Distribution Width 13.6 % (12.1-15.1); White Blood Count 17.7 10^3/uL (4.0-10.0)
[2021-04-30 03:50] LABS: Alanine Aminotransferase 116 U/L (0-41); Albumin Level 2.8 g/dL (3.5-5.2); Alkaline Phosphatase 88 IU/L (40-130); Anion Gap 12.7 (5-19); Aspartate Amino Transferase 60 U/L (0-40); Blood Urea Nitrogen 18 mg/dL (6-20); Calcium 7.5 mg/dL (8.5-10.5); Carbon Dioxide 25 mmol/L (22-29); Chloride 104 mmol/L (98-107); Globulin 2.5 g/dL (1.3-4.6); Glomerular Filtration Rate 102.7 mL/min (90-130); Glucose 112 mg/dL (65-115); Osmolality Calculated 287 mOsm/kg (285-295); Potassium 4.7 mmol/L (3.5-5.1); Sodium 137 mmol/L (136-145); Total Bilirubin 0.4 mg/dL (0.15-1.2); Total Protein 5.3 g/dL (6.6-8.7)
[2021-04-30 03:54] LABS: Partial Thromboplastin Time 86.1 SECONDS (23.9-36.7)
[2021-04-30] MEDS: piperacillin-tazobactam 3.375 GM in sodium chloride 0.9% (plus) 100 ML IV ×2 (04:25→12:20)
--- NOTE | 2021-04-30 07:43 | PC.NURSE ---
Report received, asssessment completed. Pt AAOx4, VSS. Heparin gtt infusing at 19ml/h per protocol. Makes all needs known, denies any pain. Lung sounds CTA, diminished in L base. O2@6LNC in use. Pt assisted up to chair, moves independently. Will monitor.
[2021-04-30] MEDS: dexamethasone 4 mg/mL INJ 6 MG IVP (08:11)
[2021-04-30] MEDS: remdesivir 100 MG in sodium chloride 0.9% (100 ml) 100 ML IV (08:12)
[2021-04-30] MEDS: pantoprazole DR 40 mg Tablet PO (08:12)
[2021-04-30] MEDS: lisinopril 10 mg Tablet PO (08:12)
[2021-04-30] MEDS: apixaban 5 mg Tablet 10 MG PO (08:38)
--- NOTE | 2021-04-30 11:18 | PC.NURSE ---
O2 decreased to 4LNC at 0947 per RT. Pt tolerating well, O2sat 95%. Also, started oral anticoagulant this AM. Will monitor.
--- NOTE | 2021-04-30 13:05 | PC.NURSE ---
Pt. states I am just ready to go home. Provided patient with educational material to read while pending discharge. Patient has no further needs at this time. Will monitor.
--- NOTE | 2021-04-30 14:16 | P.DS_ITS ---
Discharge Providers Date of Admission: 04/26/21 11:46 Date of Discharge: April 30, 2021 Attending Provider at Admission: Valentín Wills MD Attending Provider at Discharge: Quincy Kessler MD Primary Care Provider: CARLOS Sheehan Diagnoses at Discharge Discharge Diagnosis (1) Pulmonary emboli: Status: Acute (2) Pneumonia due to COVID-19 virus: Status: Acute (3) Acute and chronic respiratory failure with hypoxia: Status: Acute (4) Essential (primary) hypertension: Status: Chronic Reason for Visit Reason for Visit: COVID+ LOW O2 Hospital Course Hospital Course 50-year-old male with past medical history of hypertension, was admitted with chief complaint of worsening shortness of breath, he was diagnosed with Covid o n April 18, He was seen in the emergency department on the .He was at home oxygen since then oxygen, but due to worsening shortness of breath as well as chest discomfort with deep breathing he came in to the hospital. Further work-up during the hospital stay revealed acute PE, CT angio chest done on admission showed multiple filling defects distal segmental and subsegmental consistent with pulmonary emboli as well as hazy changes consistent with Covid pneumonia. He was admitted for the management of acute hypoxic respiratory failure secondary to Covid pneumonia as well as acute PE. He was initially kept on heparin and was later transitioned to Eliquis on discharge, he was also kept on Covid protocol received, IV dexamethasone Tocilizumab, remdesivir, empirically was covered with broad-spectrum antibiotic Zosyn, incentive spirometer, supplement until oxygen, nebs, and other respiratory supportive care.Venous duplex demonstrated superficial venous thrombosis, close to popliteal vein.2D echo : Normal left ventricular cavity size. Normal left ventricular systolic function. No regional wall motion abnormalities. Left ventricular ejection fraction is estimated at 58 %. Grade I/IV diastolic dysfunction (abnormal relaxation filling pattern), normal to mildly elevated filling pressures. Mildly thickened mitral valve. No mitral valve stenosis. Trace mitral valve regurgitation. Moderate aortic valve calcification. No aortic valve stenosis. Trace to mild aortic valve regurgitation. The right ventricle is normal in size and function. RVSP could not be calculated due to incomplete tricuspid regurgitation velocity profile. Right atrial pressure is around 5 mm of mercury. He responded well to the above medical management and was discharged in stable condition to home. At the time of discharge he qualified for 3 L home oxygen. Patient will follow up with Dr. Dillon as an outpatient. Physical Exam Narrative: EXAM NARRATIVE: General exam is a white male,no respiratory distress on 3 L. Neck is supple no lymphadenopathy or thyromegaly Cardiovascular regular rate and rhythm without murmur, no S3 or S4 Lungs nonlabored respiration Abdomen nondistended Extremities no cyanosis clubbing or edema, Discharge Data Data Completed and Pending: Completed Studies During Hospitalization Category Date Time Status CT angio chest PE protcl [id number] Stat Cat Scan 04/26/21 09:24 Completed XR chest 1V leona ble [id number] Stat Exams 04/26/21 09:23 [place] [id number] Routin e Ultrasound 04/27/21 19:11 Completed CV. echo complete * [id number] Routine Ultrasound 04/26/21 13:39 Completed Pending at discharge Category Date Time Status Interleukin 6 (IL -6) Serum Stat Lab 04/26/21 09:29 Received Labs from last 24 hours 04/30/21 04/30/21 04/30/21 03:25 03:25 03:25 WBC 17.7 H RBC 4.70 Hgb 13.1 Hct 39.2 L MCV 83.4 MCH 27.9 L MCHC 33.4 RDW 13.6 Plt Count 284 MPV 8.9 Neut % (Auto) 76.4 Lymph % (Auto) 9.4 Hopkins % (Auto) 3.5 Eos % (Auto) 2.0 Baso % (Auto) 0.3 Neut # (Auto) 13.48 H Lymph # (Auto) 1.7 Hopkins # (Auto) 0.6 Eos # (Auto) 0.4 Baso # (Auto) 0.1 Nucleated RBC % (a uto) 0 Nucleated RBCs # 0.0 APTT 86.1 H Sodium 137 Potassium 4.7 Chloride 104 Carbon Dioxide 25 Anion Gap 12.7 BUN 18 Creatinine 0.8 GFR Calculation 102.7 Glucose 112 Calculated Osmolal ity 287 Calcium 7.5 L Total Bilirubin 0.4 AST 60 H ALT 116 H Alkaline Phosphata se 88 Total Protein 5.3 L Albumin 2.8 L Globulin 2.5 04/29/21 20:04 WBC RBC Hgb Hct MCV MCH MCHC RDW Plt Count MPV Neut % (Auto) Lymph % (Auto) Hopkins % (Auto) Eos % (Auto) Baso % (Auto) Neut # (Auto) Lymph # (Auto) Hopkins # (Auto) Eos # (Auto) Baso # (Auto) Nucleated RBC % (a uto) Nucleated RBCs # APTT 91.2 H D Sodium Potassium Chloride Carbon Dioxide Anion Gap BUN Creatinine GFR Calculation Glucose Calculated Osmolal ity Calcium Total Bilirubin AST ALT Alkaline Phosphata se Total Protein Albumin Globulin Vitals: Last Vital Signs Temp 97.7 F 04/30/21 11:18 Pulse 80 04/30/21 12:30 Resp 19 H 04/30/21 12:30 BP 132/92 04/30/21 12:30 Pulse Ox 96 04/30/21 12:30 Discharge Plan Discharge Patient Disposition: Home Condition: Stable Prescriptions: New Eliquis 5 mg tablet 5 mg PO BID 30 Days Qty: 60 RF: 3 Advair Diskus 250-50 mcg/dose blister with device 1 inh inhalation BID Qty: 60 RF: 0 Tessalon Perles 100 mg capsule 100 mg PO BID PRN (Reason: cough) Qty: 30 RF: 0 Adult Tussin Cough Congest DM 10-100 mg/5 mL liquid 10 ml PO Q8H PRN (Reason: cough) Qty: 1000 RF: 0 Continued Tylenol Extra Strength 500 mg Tablet 1,000 mg PO PRN RF: 0 fluticasone propionate 50 mcg/actuation [place],Suspension 2 spray INTRANASAL DAILY RF: 0 lisinopril 10 mg tablet 10 mg PO QAM RF: 0 albuterol sulfate 90 mcg/actuation HFA aerosol inhaler 1 - 2 puff INHALATION Q4H PRN (Reason: Shortness Of Breath) 30 Days Qty: 1 RF: 1 Discontinued albuterol sulfate 2.5 mg /3 mL (0.083 %) solution for nebulization 2.5 mg inhalation Q4H PRN (Reason: Shortness Of Breath) RF: 0 amoxicillin-pot clavulanate 875-125 mg tablet 1 tab PO BID RF: 0 Vitamin C 1 tab PO QPM RF: 0 Vitamin D3 1 cap PO QPM RF: 0 zinc 1 cap PO QPM RF: 0 dexamethasone [Decadron] 6 mg tablet 6 mg PO DAILY 7 Days Qty: 7 RF: 0 Discharge Orders: Discharge Order (Routine); Ordered 04/30/21 Ordered By: Quincy Kessler Referrals: Alejandro Dillon MD [Physician] - 05/14/21 11:00 am (Dr Dillon's office will call you with instructions for your tele health appt) Discharge Diet: Regular Discharge Activity: Resume usual activity Patient Instructions: Benzonatate (By mouth), Dextromethorphan (By mouth), Fluticasone/Salmeterol (By breathing), Apixaban (By mouth), Pulmonary Embolism (DC), Opioid Safety, Pneumonia - Viral Discharge Attestations Time Spent in Discharge Care*: less than 30 min Specific Discharge Activities: educating patient, educating and/or supporting family/caregiver, discussing with pcp/other providers, discussing with case preparer and liner/social workers/dc planners, documenting/other paperwork and evaluating patient/reviewing data Status at Discharge: Cognitive status at discharge: cognitively intact , Behavioral status at discharge: cooperative , Functional status at discharge: independent ambulation Overall status at discharge: patient is back to baseline Quality Metrics Clinical Quality Measures During this hospital stay, did patient experience: None Coding Level of Care Code Acute Chg FW DC note Diagnoses Pulmonary emboli I26.99 Pneumonia due to COVID-19 virus U07.1; J12.82 Acute and chronic respiratory failure with hypoxia J96.21 Essential (primary) hypertension I10
--- NOTE | 2021-04-30 15:12 | PC.NURSE ---
Home O2 eval done by RT, pt reduced to 2LNC. Tolerated very well. No issues noted. Spoke with , she is picking up prescriptions prior to coming to hospital. Provided pt with DC instructions and f/u appt information. Verbalized understanding. Will monitor.
--- NOTE | 2021-04-30 16:26 | PC.NURSE ---
1615 Pt IV's removed, cathlons intact. Tolerated well. Connected to home O2 tank, tx's to , escorted by security to parking lot and tx'd into pt vehicle.
== END 2021-04-30 16:15 | disposition home or self-care (01) | DRG 177 ==
LOC: ER 11:52 → ICU 18:36
PROVIDERS: Hospitalist; Student in an Organized Health Care Education/Training Program; Admitting Provider Internal Medicine; Emergency Provider Family Medicine; PCP Nurse Practitioner; Visit Provider Internal Medicine
DX: U07.1 COVID-19 (principal); J12.82 Pneumonia due to coronavirus disease 2019; I26.99 Other pulmonary embolism without acute cor pulmonale; J96.21 Acute and chronic respiratory failure with hypoxia; I10 Essential (primary) hypertension; Z87.891 Personal history of nicotine dependence; I82.462 Acute embolism and thrombosis of left calf muscular vein; I70.0 Atherosclerosis of aorta; I08.0 Rheumatic disorders of both mitral and aortic valves; Z79.51 Long term (current) use of inhaled steroids; Z99.81 Dependence on supplemental oxygen
CPT/HCPCS: 36415; 36600; 71045; 71275; 80051; 80053; 82330; 82728; 82805; 83520; 83605; 83735; 83880; 84145; 84484; 85007; 85025; 85378; 85730; 86140; 86403; 87641; 93005; 93306; 93970; 96365; 96366; 96367; 96375; 99285; 99291; J1100; J1644; J2543; J3262; Q9967

== ENCOUNTER → 2021-05-21 09:23 | Outpatient (BNVA) | payer OTHER, SELFPAY | PROVIDERS: PCP Nurse Practitioner; Visit Provider Nurse Practitioner | DX: I10 Essential (primary) hypertension (principal); I26.99 Other pulmonary embolism without acute cor pulmonale; U07.1 COVID-19 | CPT/HCPCS: 80053; 85025 ==

== ENCOUNTER 2021-06-13 14:14 | Outpatient (CLI) | payer OTHER, SELFPAY ==
--- NOTE | 2021-06-13 14:27 | XR_ITS ---
WS: [id number] Chest 2 views, 06/13/2021 Clinical Data: Shortness of breath Comparison: Multiple chest, 04/26/2021 Findings: No nodules, masses or effusions are seen. The heart is normal. The pulmonary vascularity is not increased. No pneumonia or pneumothorax is seen. Previously noted patchy pulmonary opacities are almost totally cleared. There is a minimal residual at the right cardiophrenic angle and in the raul phery of the midportion of the left lung. XR/XR chest 2V* [id number] Impression: Almost total clearing of bilateral peripheral pulmonary opacities.
== END 2021-06-13 14:15 | disposition home or self-care (01) ==
PROVIDERS: PCP Family Medicine; Visit Provider Internal Medicine Critical Care Medicine
DX: U07.1 COVID-19 (principal)
CPT/HCPCS: 71046

== ENCOUNTER → 2021-12-25 08:25 | Outpatient (BNVA) | payer SELFPAY | PROVIDERS: PCP Dermatology; Visit Provider Dermatology | DX: Z01.89 Encounter for other specified special examinations (principal) ==

== ENCOUNTER → 2022-09-27 11:42 | Outpatient (BNVA) | payer OTHER, SELFPAY | PROVIDERS: PCP Dermatology; Visit Provider Family Medicine | DX: R22.1 Localized swelling, mass and lump, neck (principal) | CPT/HCPCS: 85025 ==

== ENCOUNTER 2022-10-16 09:49 | Outpatient (CLI) | payer OTHER, SELFPAY ==
--- NOTE | 2022-10-16 10:15 | US_ITS ---
WS: [id number] Subcutaneous ultrasound of the left neck, 10/16/2022 Clinical Data: R22.1 - Localized swelling, mass and lump, neck Comparison: None. Findings: Imaging of the left submandibular region revealed only normal subcutaneous tissue. There were small l ymph nodes. There is blood flow in the left carotid artery and jugular vein. US/US soft tissue head neck [id number] Impression: Negative subcutaneous ultrasound of left neck with only small lymph nodes seen.
== END 2022-10-16 09:50 | disposition home or self-care (01) ==
LOC: RAD 09:49
PROVIDERS: PCP Dermatology; Visit Provider Family Medicine
DX: R22.1 Localized swelling, mass and lump, neck (principal)
CPT/HCPCS: 76536

== ENCOUNTER → 2023-01-21 13:17 | Outpatient (BNVA) | payer BC, SELFPAY | PROVIDERS: PCP Nurse Practitioner; Visit Provider Family Medicine | DX: J22 Unspecified acute lower respiratory infection (principal) | CPT/HCPCS: 71046 ==

== ENCOUNTER → 2023-03-03 12:26 | Outpatient (BNVA) | payer BC, SELFPAY | PROVIDERS: PCP Nurse Practitioner; Visit Provider Family Medicine | DX: E03.9 Hypothyroidism, unspecified (principal); Z00.00 Encounter for general adult medical examination without abnormal findings; R22.1 Localized swelling, mass and lump, neck; I10 Essential (primary) hypertension; Z13.6 Encounter for screening for cardiovascular disorders | CPT/HCPCS: 80053; 80061; 84443; 85025 ==

== ENCOUNTER 2023-03-13 14:41 | Outpatient (CLI) | payer BC, MEDICAID, SELFPAY ==
[2023-03-13] MEDS: iohexol 350 mg/mL 500 mL Btl (per mL) IV (14:46)
--- NOTE | 2023-03-13 15:00 | CT_ITS ---
WS: [id number] CT NECK TECHNIQUE: Contrast-enhanced CT of the neck with coronal and sagittal reformatted images. CLINICAL INFORMATION: R22.1 - Localized swelling, mass and lump, neck COMPARISON: CT neck 2008 DLP: 245.[address] scans at [facility] use at least one of these dose optimization techniques: automated e xposure control; mA and/or kV adjustment per patient size (includes targeted exams where dose is matc hed to clinical indication); or iterative reconstruction. FINDINGS: Palpable marker overlying the LEFT parotid gland. 2 tiny normal-appearing lymph nodes in this area. N ormal underlying parotid gland with a few intraparotid lymph nodes. No evidence of suspicious mass or lesion in this location. Small retention cyst or polyp LEFT maxillary sinus. Paranasal sinuses are otherwise well aerated. Mas toid air cells well aerated. Normal posterior nasopharynx. Normal parapharyngeal fat. Normal submandi bular glands. No cervical lymphadenopathy. No evidence of supraglottic or glottic mass. Normal subglo ttic airway. Lung apices are well aerated. Moderate spondylitic changes cervical spine. Congenital se gmentation anomaly C4-C5. Disc osteophyte complex C3-C4 with mild to moderate central canal stenosis. Prominent thyroid with posterior medial extension of the RIGHT thyroid lobe unchanged. CT/CT neck w con* [id number] IMPRESSION: 1. 2 tiny normal appearing lymph nodes deep to the palpable marker LEFT neck. No other suspicious underlying abnormalities. 2. Normal salivary glands. 3. No cervical lymphadenopathy.
== END 2023-03-13 14:42 | disposition home or self-care (01) ==
PROVIDERS: PCP Family Medicine; Visit Provider Family Medicine
DX: R22.1 Localized swelling, mass and lump, neck (principal)
CPT/HCPCS: 70491; Q9967

== ENCOUNTER → 2024-09-27 09:45 | Outpatient (BNVA) | payer BC, MEDICAID, SELFPAY | PROVIDERS: PCP Family Medicine; Visit Provider Nurse Practitioner | DX: U07.1 COVID-19 (principal) | CPT/HCPCS: 80053; 85025 ==

== ENCOUNTER → 2025-04-18 10:38 | Outpatient (BNVA) | payer BC, SELFPAY | PROVIDERS: PCP Family Medicine; Visit Provider Family Medicine | DX: N39.0 Urinary tract infection, site not specified (principal) | CPT/HCPCS: 81000 ==

== ENCOUNTER → 2025-05-10 08:20 | Outpatient (BNVA) | payer BC, SELFPAY | PROVIDERS: PCP Family Medicine; Visit Provider Family Medicine | DX: N39.0 Urinary tract infection, site not specified (principal) | CPT/HCPCS: 81000 ==

== ENCOUNTER → 2025-05-18 08:30 | Outpatient (BNVA) | payer BC, SELFPAY | PROVIDERS: PCP Family Medicine; Visit Provider Clinical Nurse Specialist Adult Health | DX: N41.9 Inflammatory disease of prostate, unspecified (principal) | CPT/HCPCS: 81003; 85007; 85025; 85651; 86140; 87086 ==

== ENCOUNTER → 2025-09-16 08:09 | Outpatient (BNVA) | payer BC, SELFPAY | PROVIDERS: PCP Family Medicine; Visit Provider Family Medicine | DX: Z12.5 Encounter for screening for malignant neoplasm of prostate (principal) | CPT/HCPCS: G0103 ==